=== PATIENT | male | born 1980 | race African-American/Black ===

== ENCOUNTER 2018-01-09 13:35 | Inpatient (IN) | payer OTHER ==
[2018-01-09] MEDS ORDERED: SODIUM CHLORIDE 1,000 ML IV STA (13:50)
--- NOTE | 2018-01-09 13:50 | PDOC ---
History of Present Illness - History of Present Illness Initial Comments: 01/09/18 14:53 37 YOM, with a significant past medical history of HLD (diet controlled, recently diagnosed this week), who presents to the emergency department with progressively worsening RLQ AP x 1 day since 1am which woke him up from sleep. . He describes the pain as a constant dull ache 8/10, throbbing, radiating to his right lower back with associated nausea. Has not taken any medications for the pain today. He denies any recent fevers, chills, headache or dizziness. He denies any recent vomit, diarrhea or constipation. He denies any recent chest pain or shortness of breath. He denies any recent dysuria, frequency, urgency or hematuria. No other sick contacts or travel. Denies suspicious food intake. Allergies: NKDA Past surgical history: None reported. Primary Care Physician: Dr. Scherer <Jeramy Patrick - Last Filed: 01/09/18 14:52> - General History Source: Patient Exam Limitations: No Limitations <Lima Amado - Last Filed: 01/09/18 16:32> - General Chief Complaint: Pain Stated Complaint: SEVERE ABDOMINAL PAIN Time Seen by Provider: 01/09/18 13:49 Past History <Jeramy Patrick - Last Filed: 01/09/18 14:52> - Past Medical History COPD: No Hypercholesterolemia: Yes - Suicide/Smoking/Psychosocial Hx Smoking History: Never smoked Have you smoked in the past 12 months: No Hx Alcohol Use: No Substance Use Type: None <Lmia Amado - Last Filed: 01/09/18 16:32> - Past Medical History Allergies/Adverse Reactions: Allergies Allergy/AdvReac Type Severity Reaction Status Date / Time No Known Allergies Allergy Unverified 01/09/18 13:39 Home Medications: Ambulatory Orders Naproxen [Naprosyn -] 250 mg PO BID PRN 01/09/18 Review of Systems - Review of Systems Comments:: 01/09/18 14:53 GENERAL/CONSTITUTIONAL: No fever or chills. No weakness. no sweats. CARDIOVASCULAR: No chest pain or palpitations, syncope or edema. RESPIRATORY: No SOB, cough, wheezing, or hemoptysis. +GASTROINTESTINAL +Nausea. Abdominal pain- RLQ. No vomiting. No diarrhea or constipation. No bloody stools. GENITOURINARY: No hematuria, dysuria, frequency, urgency or other changes. MUSCULOSKELETAL: No joint or muscle swelling or pain. No neck or back pain. SKIN: No rash or changes in skin color or lesions. NEUROLOGIC: No headache, vertigo, loss of consciousness, or change in strength/ sensation. No gait instability. HEMATOLOGIC/LYMPHATIC: No anemia, easy bruising/bleeding, or history of blood clots. ALLERGIC/IMMUNOLOGIC: No allergies All other systems reviewed and negative, or as documented in HPI. <Jeramy Patrick - Last Filed: 01/09/18 14:52> *Physical Exam - Vital Signs Last Vital Signs Temp Pulse Resp BP Pulse Ox 97.6 F 75 18 109/67 98 01/09/18 13:36 01/09/18 13:36 01/09/18 13:36 01/09/18 13:36 01/09/18 13:36 - Physical Exam Comments: 01/09/18 14:53 General: Well appearing, awake and alert, NAD. HEENT: NCAT, PERRL, EOMI, clear conjunctiva, anicteric, moist mucus membranes, clear oropharynx, no oral lesions.. Neck: neck supple, FROM Resp: CTAB, normal and even respirations, no respiratory distress CVS: RRR, no murmurs, 2+ peripheral pulses throughout, no peripheral edema +Abdomen: +RLQ tenderness. Positive psoas sign. Neg Rovsings. soft, ND, no peritoneal signs. No murphys sign. Male : normal external genitalia, no lesions, normal testicular lie, no scrotal or testicular edema or tenderness. +cremaster reflex bilaterally. no hernia. Back: nontender, normal inspection and ROM. No CVAT MSK: no edema, CRUZ x4, ROM intact. No clubbing or cyanosis. normal bulk and tone. Extremities: no calf tenderness Neuro: alert Skin: warm and well perfused, cap refill <2 sec, normal color <Jeramy Patrick - Last Filed: 01/09/18 14:52> - Vital Signs Last Vital Signs Temp Pulse Resp BP Pulse Ox 97.6 F 75 18 109/67 98 01/09/18 13:36 01/09/18 13:36 12/02/18 13:36 01/09/18 13:36 01/09/18 13:36 <Lima Amado - Last Filed: 01/09/18 16:32> Moderate Sedation - Procedure Monitoring Vital Signs: Procedure Monitoring Vital Signs Temperature 97.6 F 01/09/18 13:36 Pulse Rate 75 01/09/18 13:36 Respiratory Rate 18 01/09/18 13:36 Blood Pressure 109/67 01/09/18 13:36 O2 Sat by Pulse Oximetry (%) 98 01/09/18 13:36 <Jeramy Patrick - Last Filed: 01/09/18 14:52> - Procedure Monitoring Vital Signs: Procedure Monitoring Vital Signs Temperature 97.6 F 01/09/18 13:36 Pulse Rate 75 01/09/18 13:36 Respiratory Rate 18 01/09/18 13:36 Blood Pressure 109/67 01/09/18 13:36 O2 Sat by Pulse Oximetry (%) 98 01/09/18 13:36 <Lima Amado - Last Filed: 01/09/18 16:32> ED Treatment Course - LABORATORY CBC & Chemistry Diagram: 01/09/18 14:00 01/09/18 14:00 - ADDITIONAL ORDERS Additional order review: Laboratory Results 01/09/18 14:00 Sodium 139 Potassium 4.1 Chloride 102 Carbon Dioxide 28 Anion Gap 9 BUN 18 Creatinine 1.1 Creat Clearance w eGFR > 60 Random Glucose 102 Calcium 9.0 Total Bilirubin 0.4 AST 31 ALT 68 H Alkaline Phosphatase 105 Total Protein 7.5 Albumin 3.7 Lipase 125 01/09/18 14:00 RBC 5.38 MCV 84.0 MCHC 31.9 L RDW 15.5 MPV 7.9 Neutrophils % 63.7 Lymphocytes % 24.6 D Monocytes % 9.5 Eosinophils % 1.5 D Basophils % 0.7 - Medications Given in the ED: ED Medications Discontinued Medications Generic Name Dose Route Start Last Admin Trade Name Freq PRN Reason Stop Dose Admin Acetaminophen 1,000 mg 01/09/18 14:17 01/09/18 14:31 Ofirmev Injection - IVPB 01/09/18 14:18 1,000 mg ONCE ONE Administration Sodium Chloride 1,000 mls @ 1,000 mls/hr 01/09/18 13:50 12/02/18 14:01 Normal Saline - IV 01/09/18 14:49 1,000 mls/hr ASDIR STA Administration Ondansetron HCl 4 mg 01/09/18 14:17 01/09/18 14:31 Zofran Injection IVPUSH 01/09/18 14:18 4 mg ONCE ONE Administration <Jeramy Patrick - Last Filed: 01/09/18 14:52> - LABORATORY CBC & Chemistry Diagram: 01/09/18 14:00 01/09/18 14:00 <Lima Amado - Last Filed: 01/09/18 16:32> Medical Decision Making - Medical Decision Making 01/09/18 14:58 See HPI for details DDx abdominal pain: appendicitis, diverticulitis. infarction/ischemia. Renal colic,metabolic/electrolyte derangements. GERD, PUD, esophageal spasm, pancreatitis, hepatitis, constipation, colitis, gastroenteritis, cholecystitis, UTI, pyelonephritis,hernia. Abdominal wall strain. Clinically doubt biliary/ alexy. Vital signs reviewed, wnl. normotensive here Prior notes reviewed, including admissions, discharges and consultations. laboratory results and imaging reviewed, basic labs and lytes wnl, notable for normal lipase and LFTs. normal Cr UA_neg for infection, f/u urine cultures. ED course: tylenol, IVF, zofran. IV morphine PRN for analgesia. CT a/p to r/o appy vs hernia vs intra abdominal infection/inflammation CT a/p neg for appy, but right renal infarction present with wedge shaped hypodensity. unclear etiology for infarction. no urinary sx and neg prelim UA for infection. no cp or sob. Heparin bolus and gtt for anticoagulation. Vascular cs with Dr. Rivera. awaiting callback, for possible endovascular vs angioplasty and surgical intervention. admission EKG/CXR ordered Dispo: admit for right renal infarction, anticoagulation, vascular surg cs admit to hospitalist team 01/09/18 16:29 01/09/18 16:32 <Lima Amado - Last Filed: 01/09/18 16:32> *DC/Admit/Observation/Transfer - Attestations Scribe Attestion: 01/09/18 14:54 Documentation prepared by Jeramy Patrick, acting as medical officer for Lima Amado MD. <Jeramy Patrick - Last Filed: 01/09/18 14:52> - Discharge Dispostion Decision to Admit order: Yes Decision to Admit order Date/Time: 01/09/18 15:51 Decision to Admit Order Category Date Time Status Decision to Admit to Hospital Routine Admission 01/09/18 15:50 Ordered - Attestations Physician Attestion: 01/09/18 14:19 I, Lima Amado MD, attest that this document has been prepared under my direction and personally reviewed by me in its entirety. I further attest, that it accurately reflects all work, treatment, procedures and medical decision -making performed by me. <Lima Amado - Last Filed: 01/09/18 16:32> Diagnosis at time of Disposition: Ischemia and infarction of kidney - Discharge Dispostion Condition at time of disposition: Guarded - Referrals Referrals: Jacquelyn Scherer [employer] TECHNICIAN [Primary Care Provider] - - Patient Instructions - Post Discharge Activity
[2018-01-09 14:08] LABS: BASO % 0.7 % (0-2.0); EOS % 1.5 % (0-4.5); HEMATOCRIT 45.2 % (35.4-49); HEMOGLOBIN 14.4 GM/dL (11.7-16.9); LYMPH % 24.6 % (8-40); MCH 26.8 pg (25.7-33.7); MCHC 31.9 g/dl (32.0-35.9); MEAN PLT VOLUME 7.9 fl (7.5-11.1); MONO % 9.5 % (3.8-10.2); NEUT % 63.7 % (42.8-82.8); PLATELET COUNT 224 K/MM3 (134-434); RBC 5.38 M/mm3 (4.00-5.60); RDW 15.5 % (11.9-15.9); WHITE BLOOD COUNT 6.3 K/mm3 (4.0-10.0)
[2018-01-09] MEDS ORDERED: ACETAMINOPHEN 1000 MG/100 ML VIAL (NON FORMULARY) IVPB ONE (14:17)
[2018-01-09] MEDS ORDERED: ONDANSETRON 4 MG/2 ML VIAL IVPUSH ONE (14:17)
[2018-01-09] MEDS ORDERED: ACETAMINOPHEN INJECTION 100 ML IVPB ONE (14:23)
[2018-01-09] MEDS ORDERED: ONDANSETRON 4 MG/2 ML VIAL ONE (14:23)
[2018-01-09 14:27] LABS: ALBUMIN 3.7 g/dl (3.4-5.0); ALK PHOS 105 U/L (45-117); ANION GAP 9 MMOL/L (8-16); BILIRUBIN,TOTAL 0.4 mg/dL (0.2-1); BLOOD UREA NITROGEN 18 mg/dL (7-18); CHLORIDE 102 mmol/L (98-107); CO2 28 mmol/L (21-32); CREATININE 1.1 mg/dL (0.55-1.3); GLUCOSE,RANDOM 102 mg/dL (74-106); LIPASE 125 U/L (73-393); POTASSIUM 4.1 mmol/L (3.5-5.1); SGOT/AST 31 U/L (15-37); SGPT/ALT 68 U/L (13-61); SODIUM 139 mmol/L (136-145); TOT PROT 7.5 g/dl (6.4-8.2)
[2018-01-09 14:54] LABS: URINE APPEARANCE CLEAR; URINE BILIRUBIN NEGATIVE (<2.0 mg/dL); URINE COLOR YELLOW; URINE GLUCOSE (UA) NEGATIVE (NEGATIVE); URINE KETONE NEGATIVE (NEGATIVE); URINE LEUK ESTERASE NEGATIVE (NEGATIVE); URINE NITRITE NEGATIVE (NEGATIVE); URINE PROTEIN NEGATIVE (NEGATIVE); URINE UROBILINOGEN NEGATIVE mg/dL (0.2-1.0)
[2018-01-09] MEDS ORDERED: morphine CARPU-JECT 4 MG/1 ML DISP.SYRIN IVPUSH ONE ×2 (15:24→16:29)
[2018-01-09] MEDS ORDERED: morphine SULFATE 4 MG/ML VIAL ONE ×2 (15:33→16:40)
[2018-01-09] MEDS ORDERED: HEPARIN - 25,000 UNIT in SODIUM CHLORIDE 495 ML IV SCH (15:45)
[2018-01-09] MEDS ORDERED: HEPARIN INFUSION - 25,000 UNITS/500 ML INFUS.BAG IVPB ONE (15:57)
[2018-01-09] MEDS ORDERED: HEPARIN NA (PORCINE) 5,000 UNITS/ML 1ML VIAL ONE (15:57)
[2018-01-09] MEDS: HEPARIN NA (PORCINE) 5,000 UNITS/ML 1ML VIAL IVPUSH PRN (16:05)
[2018-01-09] MEDS ORDERED: MORPHINE SULFATE 2 MG/ML VIAL IVPUSH PRN (16:22)
--- NOTE | 2018-01-09 16:27 | HP ---
CHIEF COMPLAINT: abdominal pain PCP: Dr. Scherer HISTORY OF PRESENT ILLNESS: Patient is a 37 year old male with a significant past medical history of obesity and hyperlipidemia. Patient comes to the ED today after he experienced an acute episode of RLQ pain that woke him from his sleep last night. He took Pepto Bismol and Naproxyn and tried to sleep, but pain worsened. He has not had this pain before. He had an episode of vomiting with this pain and describes the pain as constant throbbing dull ache. The pain does not radiate to his back, nor up to his chest. He denies any fevers, chills, headache or dizziness. He denies any diarrhea, constipation, chest pain or shortness of breath. He denies any recent dysuria, frequency, urgency or hematuria. Has not changed his diet. He denies any history of malignancy, cocaine use or autoimmune disease. In the ED a CT/abdomen & pelvis 01/09/2018 shows multiple right renal hypodense nonenhancing lesion are seen consistent with either (1) multiple acute infarcts vs. multifocal acute pyelonephritis. ER course was notable for: (1) EKG SB 54 (2) trop negative x 1 (3) UA negative, no protein, no hematuria, no signs of infection or blood. UC pending. (4) normal bun/creat (5) pt/inr (6) heparin drip Recent Travel: denies Social History: Smoking: denies Alcohol: denies Drugs: denies Family History: Allergies No Known Allergies Allergy (Unverified 01/09/18 13:39) HOME MEDICATIONS: Home Medications Medication Instructions Recorded Naproxen [Naprosyn -] 250 mg PO BID PRN 01/09/18 PHYSICAL EXAMINATION Vital Signs - 24 hr 01/09/18 13:36 Temperature 97.6 F Pulse Rate 75 Respiratory 18 Rate Blood Pressure 109/67 O2 Sat by Pulse 98 Oximetry (%) GENERAL: Awake, alert, and fully oriented, in no acute distress. HEAD: Normal with no signs of trauma. EYES: Pupils equal, round and reactive to light, extraocular movements intact, sclera anicteric, conjunctiva clear. No lid lag. EARS, NOSE, THROAT: Ears normal, nares patent, oropharynx clear without exudates. Moist mucous membranes. NECK: Normal range of motion, supple without lymphadenopathy, JVD, or masses. LUNGS: Breath sounds equal, clear to auscultation bilaterally. No wheezes, and no crackles. No accessory muscle use. HEART: Regular rate and rhythm, normal S1 and S2 without murmur, rub or gallop. ABDOMEN:+Abdomen: +RLQ tenderness. Positive psoas sign. MUSCULOSKELETAL: Normal range of motion at all joints. No bony deformities or tenderness. No CVA tenderness. UPPER EXTREMITIES: 2+ pulses, warm, well-perfused. No cyanosis. No clubbing. No peripheral edema. LOWER EXTREMITIES: 2+ pulses, warm, well-perfused. No calf tenderness. No peripheral edema. NEUROLOGICAL: Cranial nerves II-XII intact. Normal speech. Normal gait. PSYCHIATRIC: Cooperative. Good eye contact. Appropriate mood and affect. SKIN: Warm, dry, normal turgor, no rashes or lesions noted, normal capillary refill. Laboratory Results - last 24 hr 01/09/18 01/09/18 01/09/18 14:00 14:00 14:40 WBC 6.3 RBC 5.38 Hgb 14.4 Hct 45.2 MCV 84.0 MCH 26.8 MCHC 31.9 L RDW 15.5 Plt Count 224 D MPV 7.9 Absolute Neuts (auto) 4.0 Neutrophils % 63.7 Lymphocytes % 24.6 D Monocytes % 9.5 Eosinophils % 1.5 D Basophils % 0.7 Nucleated RBC % 0 Sodium 139 Potassium 4.1 Chloride 102 Carbon Dioxide 28 Anion Gap 9 BUN 18 Creatinine 1.1 Creat Clearance w eGFR > 60 Random Glucose 102 Calcium 9.0 Total Bilirubin 0.4 AST 31 ALT 68 H Alkaline Phosphatase 105 Total Protein 7.5 Albumin 3.7 Lipase 125 Urine Color Yellow Urine Appearance Clear Urine pH 5.0 Ur Specific [place] 1.023 Urine Protein Negative Urine Glucose (UA) Negative Urine Ketones Negative Urine Blood Negative Urine Nitrite Negative Urine Bilirubin Negative Urine Urobilinogen Negative Ur Leukocyte Esterase Negative ASSESSMENT/PLAN: Patient is a 37 year old male with a significant past medical history of obesity and hyperlipidemia. Patient comes to the ED today after he experienced an acute episode of RLQ pain that woke him from his sleep last night. He took Pepto Bismol and Naproxyn and tried to sleep, but pain worsened. He has not had this pain before. He had an episode of vomiting with this pain and describes the pain as constant throbbing dull ache. The pain does not radiate to his back, nor up to his chest. Imaging: In the ED a CT/abdomen & pelvis 01/09/2018 shows multiple right renal hypodense nonenhancing lesion are seen consistent with either (1) multiple acute infarcts vs. multifocal acute pyelonephritis. Renal: Presents with RLQ pain and nausea and found to have multiple right renal hypodense nonenhancing lesion are seen consistent with either: multiple acute infarcts vs. multifocal acute pyelonephritis. No cardiovascular disease reported, EKG shows sinus valeriy, echo ordered to rule out valvular heart disease. will order - [id number] - lipid panel - echocardiogram - started on heparin drip - IVF - pain management - LE doppler - daily pt/inr Monitor renal function with daily labs. Vascular consulted/renal consulted : Acute pylenoephritis per Ct imaging denies any recent dysuria, frequency, urgency or hematuria. UA negative UC pending Ceftriaxone 2gram given Start on ivf. Heme: Consider heme consult for hypercoag. workup Cardiology Rule out cardiogenic embolic source Echocardiogram ordered Further testing as per cardiology recommendations fen normal saline @100cc/hr monitor electrolytes low salt diet prophy on heparin drip protonix full code Visit type - Emergency Visit Emergency Visit: Yes ED Registration Date: 01/09/18 Care time: The patient presented to the Emergency Department on the above date and was hospitalized for further evaluation of their emergent condition. - New Patient This patient is new to me today: Yes Date on this admission: 01/09/18 - Critical Care Critical Care patient: No
[2018-01-09 16:41] LABS: INR 1.13 (0.83-1.09); PROTHROMBIN TIME (PATIENT) 13.3 SEC (9.7-13.0)
[2018-01-09 18:14] LABS: LDH 220 U/L (87-246)
[2018-01-09] MEDS ORDERED: morphine SULFATE 4 MG/ML VIAL IVPUSH ONE (18:23)
[2018-01-09 18:31] VITALS: BMI 42.7
[2018-01-09] MEDS ORDERED: CEFTRIAXONE 2 GM in DEXTROSE 5%-WATER 100 ML IVPB ONE (18:45)
[2018-01-09] MEDS ORDERED: ONDANSETRON 4 MG/2 ML VIAL IVPUSH PRN (18:53)
[2018-01-09] MEDS: RANITIDINE HCL 150 MG TABLET (FP) PO SCH (21:17)
[2018-01-09] MEDS: DOCUSATE SODIUM 100 MG CAPSULE (FP) PO SCH (21:18)
[2018-01-09] MEDS: SODIUM CHLORIDE 1,000 ML IV SCH (21:30)
[2018-01-09] MEDS ORDERED: DEXTROSE 5%-WATER 100 ML IVPB ONE (21:43)
[2018-01-09 22:54] LABS: LDH 224 U/L (87-246)
[2018-01-10 01:49] LABS: URINE APPEARANCE CLEAR; URINE BILIRUBIN NEGATIVE (<2.0 mg/dL); URINE COLOR LTYELLOW; URINE GLUCOSE (UA) NEGATIVE (NEGATIVE); URINE KETONE NEGATIVE (NEGATIVE); URINE LEUK ESTERASE NEGATIVE (NEGATIVE); URINE NITRITE NEGATIVE (NEGATIVE); URINE PROTEIN NEGATIVE (NEGATIVE); URINE UROBILINOGEN NEGATIVE mg/dL (0.2-1.0)
[2018-01-10] MEDS: DOCUSATE SODIUM 100 MG CAPSULE (FP) PO SCH ×3 (05:48→22:06)
[2018-01-10] MEDS: morphine SULFATE 4 MG/ML VIAL IVPUSH PRN ×3 (05:48→18:54)
[2018-01-10 07:00] LABS: HEMATOCRIT 42.9 % (35.4-49); HEMOGLOBIN 13.8 GM/dL (11.7-16.9); MCHC 32.3 g/dl (32.0-35.9); MEAN CELL VOLUME 83.5 fl (80-96); MEAN PLT VOLUME 7.8 fl (7.5-11.1); PLATELET COUNT 199 K/MM3 (134-434); RBC 5.13 M/mm3 (4.00-5.60); RDW 15.3 % (11.9-15.9); WHITE BLOOD COUNT 6.4 K/mm3 (4.0-10.0)
[2018-01-10 07:25] LABS: ANION GAP 10 MMOL/L (8-16); BLOOD UREA NITROGEN 12 mg/dL (7-18); CALCIUM 8.7 mg/dL (8.5-10.1); CHLORIDE 103 mmol/L (98-107); CO2 26 mmol/L (21-32); CREATININE 0.9 mg/dL (0.55-1.3); GLUCOSE,RANDOM 85 mg/dL (74-106); MAGNESIUM 1.8 mg/dL (1.8-2.4); POTASSIUM 4.1 mmol/L (3.5-5.1); SODIUM 138 mmol/L (136-145)
[2018-01-10 07:27] LABS: CHOLESTEROL 202 mg/dL (50-200); HDL CHOLESTEROL 61 mg/dL (40-60); TRIGLYCERIDES 85 mg/dL (0-150)
[2018-01-10 07:47] LABS: INR 1.14 (0.83-1.09); PROTHROMBIN TIME (PATIENT) 13.5 SEC (9.7-13.0)
[2018-01-10 07:50] LABS: ACTIVATED PTT 32.6 SECONDS (25.2-36.5)
[2018-01-10] MEDS ORDERED: DEXTROSE 5%-WATER 100 ML IVPB ONE (09:55)
[2018-01-10] MEDS: CEFTRIAXONE 2 GM in DEXTROSE 5%-WATER 100 ML IVPB SCH (10:12)
[2018-01-10] MEDS: RANITIDINE HCL 150 MG TABLET (FP) PO SCH ×2 (10:12→22:06)
[2018-01-10] MEDS: HEPARIN NA (PORCINE) 5,000 UNITS/ML 1ML VIAL IVPUSH PRN ×3 (10:14→18:55)
--- NOTE | 2018-01-10 11:16 | EKG ---
Test Reason : Blood Pressure : / mmHG Vent. Rate : 054 BPM Atrial Rate : 054 BPM P-R Int : 188 ms QRS Dur : 084 ms QT Int : 432 ms P-R-T Axes : 051 053 023 degrees QTc Int : 409 ms SINUS BRADYCARDIA OTHERWISE NORMAL ECG WHEN COMPARED WITH ECG OF 01-MAR-2009 03:00, VENT. RATE HAS DECREASED BY 33 BPM Confirmed by NICO HUTTON MD ([id number]) on 01/10/2018 11:16:09 AM Referred By: Confirmed By:NICO HUTTON MD
--- NOTE | 2018-01-10 12:45 | CONSULT ---
Consult - text type - Consultation Consultation Note: Renal Consult for Renal infarction This is a 37 year old AA gentleman with no significant past medical history who presented with right sided abd pain and found to have renal infarction vs pylonephritis on CT scan. Pt denies any history of CKD or kidney issues in the past. No hx of vascular procedures. No hx of Afib. ON Naproxen for right shoulder pain. No N/V/D. No fever or chills. No hx of autoimmune disease. Continues to have mild abd pain. No gross hematuria. PMhx: as above Allergies: NKDA Family Hx: NC Social Hx: no Tobacco ROS: as per HPI, all other pertinent ros negative Vital Signs Temperature 98.5 F 01/10/18 06:00 Pulse Rate 65 01/10/18 06:00 Respiratory Rate 18 01/10/18 06:00 Blood Pressure 136/71 01/10/18 06:00 O2 Sat by Pulse Oximetry (%) 100 01/09/18 21:00 Intake & Output 01/07/18 01/08/18 01/09/18 01/10/18 23:59 23:59 23:59 23:59 Intake Total 530 840 Balance 530 840 Weight 142.882 kg NAD Neck supple, no JVD MMM RRR CTA soft NT/ND No LE edema CBC, BMP 01/10/18 06:00 01/10/18 06:00 Current Medications Acetaminophen (Tylenol -) 650 mg PO Q6H PRN PRN Reason: PAIN LEVEL 7-10 Atorvastatin Calcium (Lipitor -) 40 mg PO HS KATHERIN Docusate Sodium (Colace -) 100 mg PO TID KATHERIN Last Admin: 01/10/18 05:48 Dose: 100 mg Heparin Sodium (Porcine) (Heparin -) 1,000 unit IVPUSH PRN PRN PRN Reason: Heparin Last Admin: 01/09/18 16:05 Dose: 1,000 unit Heparin Sodium (Porcine) (Heparin -) 5,000 unit IVPUSH PRN PRN PRN Reason: Heparin Last Admin: 01/10/18 10:25 Dose: 5,000 unit Heparin Sodium (Porcine) 25, (000 unit/ Sodium Chloride) 500 mls @ 20 mls/hr IV TITR KATHERIN; Protocol Last Titration: 01/10/18 10:25 Dose: 1,150 unit/hr, 23 mls/hr Sodium Chloride (Normal Saline -) 1,000 mls @ 100 mls/hr IV ASDIR KATHERIN Last Admin: 01/09/18 21:30 Dose: 100 mls/hr Ceftriaxone Sodium 2 gm/ (Dextrose) 100 mls @ 200 mls/hr IVPB DAILY [facility]; Protocol Last Admin: 01/10/18 10:12 Dose: 200 mls/hr Morphine Sulfate (Morphine Sulfate) 4 mg IVPUSH Q4H PRN PRN Reason: PAIN 4-6 Last Admin: 01/10/18 10:26 Dose: 4 mg Ondansetron HCl (Zofran Injection) 4 mg IVPUSH Q6H PRN PRN Reason: NAUSEA Ranitidine HCl (Zantac -) 150 mg PO BID [facility] Last Admin: 01/10/18 10:12 Dose: 150 mg 37 year old AA gentleman with no significant past medical history who presented with right sided abd pain and found to have renal infarction vs pylonephritis on CT scan. #Renal infarction vs. pylonephritis (less likely pylonephritis given no WBC/LE on UA) #Hyperlipidemia #Pre-HTN/HTN Continue cardiac work up for irregular cardiac rhythm vs. valve pathology consider heme evaluation for prothrombotic work up Would do CTA of Abd to r/o pathology in aorta and renal arteries would continue anticoagulation pending work up, if not clear etiology would consider long term care administrator A/C and then reassessment in 3-6 months Renal function is preserved, would continue to monitor continue statin trend BP Thank you Carl Mercado DO
--- NOTE | 2018-01-10 13:32 | PN ---
Physical Exam: SUBJECTIVE: Patient seen and examined at the bedside. at bedside. OBJECTIVE: states patient had back surgery 5 years ago L4-L5 with Dr [place]. denies any recent surgery. Vital Signs Period Temp Pulse Resp BP Sys/Spear Pulse Ox Last 24 Hr 97.6 F-98.5 F 60-75 16-18 100-136/50-71 98-100 GENERAL: Awake, alert, and fully oriented, in no acute distress. HEAD: Normal with no signs of trauma. EYES: Pupils equal, round and reactive to light, extraocular movements intact, sclera anicteric, conjunctiva clear. No lid lag. EARS, NOSE, THROAT: Ears normal, nares patent, oropharynx clear without exudates. Moist mucous membranes. NECK: Normal range of motion, supple without lymphadenopathy, JVD, or masses. LUNGS: Breath sounds equal, clear to auscultation bilaterally. No wheezes, and no crackles. No accessory muscle use. HEART: Regular rate and rhythm, normal S1 and S2 without murmur, rub or gallop. ABDOMEN:+Abdomen: +RLQ tenderness MUSCULOSKELETAL: Normal range of motion at all joints. No bony deformities or tenderness. No CVA tenderness. UPPER EXTREMITIES: 2+ pulses, warm, well-perfused. No cyanosis. No clubbing. No peripheral edema. LOWER EXTREMITIES: 2+ pulses, warm, well-perfused. No calf tenderness. No peripheral edema. NEUROLOGICAL: Cranial nerves II-XII intact. Normal speech. Normal gait. PSYCHIATRIC: Cooperative. Good eye contact. Appropriate mood and affect. SKIN: Warm, dry, normal turgor, no rashes or lesions noted, normal capillary refill. Laboratory Results - last 24 hr 01/09/18 01/09/18 01/09/18 09:25 09:25 09:25 WBC RBC Hgb Hct MCV MCH MCHC RDW Plt Count MPV Absolute Neuts (auto) Neutrophils % Lymphocytes % Monocytes % Eosinophils % Basophils % Nucleated RBC % PT with INR INR PTT (Actin FS) 41.4 H Sodium Potassium Chloride Carbon Dioxide Anion Gap BUN Creatinine Creat Clearance w eGFR Random Glucose Hemoglobin A1c % Calcium Magnesium Total Bilirubin AST ALT Alkaline Phosphatase LD Total 224 Creatine Kinase 219 Creatine Kinase Index 0.4 CK-MB (CK-2) < 1.0 Troponin I Total Protein Albumin Triglycerides Cholesterol Total LDL Cholesterol HDL Cholesterol Lipase Urine Color Urine Appearance Urine pH Ur Specific [place] Urine Protein Urine Glucose (UA) Urine Ketones Urine Blood Urine Nitrite Urine Bilirubin Urine Urobilinogen Ur Leukocyte Esterase Blood Type O POSITIVE Antibody Screen 01/09/18 01/09/18 01/09/18 09:25 14:00 14:00 WBC 6.3 RBC 5.38 Hgb 14.4 Hct 45.2 MCV 84.0 MCH 26.8 MCHC 31.9 L RDW 15.5 Plt Count 224 D MPV 7.9 Absolute Neuts (auto) 4.0 Neutrophils % 63.7 Lymphocytes % 24.6 D Monocytes % 9.5 Eosinophils % 1.5 D Basophils % 0.7 Nucleated RBC % 0 PT with INR INR PTT (Actin FS) Sodium 139 Potassium 4.1 Chloride 102 Carbon Dioxide 28 Anion Gap 9 BUN 18 Creatinine 1.1 Creat Clearance w eGFR > 60 Random Glucose 102 Hemoglobin A1c % Calcium 9.0 Magnesium Total Bilirubin 0.4 AST 31 ALT 68 H Alkaline Phosphatase 105 LD Total Creatine Kinase Creatine Kinase Index CK-MB (CK-2) Troponin I < 0.02 Total Protein 7.5 Albumin 3.7 Triglycerides Cholesterol Total LDL Cholesterol HDL Cholesterol Lipase 125 Urine Color Urine Appearance Urine pH Ur Specific [place] Urine Protein Urine Glucose (UA) Urine Ketones Urine Blood Urine Nitrite Urine Bilirubin Urine Urobilinogen Ur Leukocyte Esterase Blood Type Antibody Screen 01/09/18 01/09/18 01/09/18 14:40 16:05 16:05 WBC RBC Hgb Hct MCV MCH MCHC RDW Plt Count MPV Absolute Neuts (auto) Neutrophils % Lymphocytes % Monocytes % Eosinophils % Basophils % Nucleated RBC % PT with INR INR PTT (Actin FS) 28.6 Sodium Potassium Chloride Carbon Dioxide Anion Gap BUN Creatinine Creat Clearance w eGFR Random Glucose Hemoglobin A1c % Calcium Magnesium Total Bilirubin AST ALT Alkaline Phosphatase LD Total Creatine Kinase Creatine Kinase Index CK-MB (CK-2) Troponin I Total Protein Albumin Triglycerides Cholesterol Total LDL Cholesterol HDL Cholesterol Lipase Urine Color Yellow Urine Appearance Clear Urine pH 5.0 Ur Specific [place] 1.023 Urine Protein Negative Urine Glucose (UA) Negative Urine Ketones Negative Urine Blood Negative Urine Nitrite Negative Urine Bilirubin Negative Urine Urobilinogen Negative Ur Leukocyte Esterase Negative Blood Type O POSITIVE Antibody Screen Negative 01/09/18 01/09/18 01/10/18 16:06 17:15 01:30 WBC RBC Hgb Hct MCV MCH MCHC RDW Plt Count MPV Absolute Neuts (auto) Neutrophils % Lymphocytes % Monocytes % Eosinophils % Basophils % Nucleated RBC % PT with INR 13.30 H INR 1.13 H PTT (Actin FS) Sodium Potassium Chloride Carbon Dioxide Anion Gap BUN Creatinine Creat Clearance w eGFR Random Glucose Hemoglobin A1c % Calcium Magnesium Total Bilirubin AST ALT Alkaline Phosphatase LD Total 220 Creatine Kinase Creatine Kinase Index CK-MB (CK-2) Troponin I < 0.02 Total Protein Albumin Triglycerides Cholesterol Total LDL Cholesterol HDL Cholesterol Lipase Urine Color Ltyellow Urine Appearance Clear Urine pH 7.0 D Ur Specific [place] 1.026 Urine Protein Negative Urine Glucose (UA) Negative Urine Ketones Negative Urine Blood Negative Urine Nitrite Negative Urine Bilirubin Negative Urine Urobilinogen Negative Ur Leukocyte Esterase Negative Blood Type Antibody Screen 01/10/18 01/10/18 01/10/18 06:00 06:00 06:00 WBC 6.4 RBC 5.13 Hgb 13.8 Hct 42.9 MCV 83.5 MCH 27.0 MCHC 32.3 RDW 15.3 Plt Count 199 MPV 7.8 Absolute Neuts (auto) Neutrophils % Lymphocytes % Monocytes % Eosinophils % Basophils % Nucleated RBC % PT with INR 13.50 H INR 1.14 H PTT (Actin FS) 32.6 Sodium 138 Potassium 4.1 Chloride 103 Carbon Dioxide 26 Anion Gap 10 BUN 12 Creatinine 0.9 Creat Clearance w eGFR > 60 Random Glucose 85 Hemoglobin A1c % Calcium 8.7 Magnesium 1.8 Total Bilirubin AST ALT Alkaline Phosphatase LD Total Creatine Kinase Creatine Kinase Index CK-MB (CK-2) Troponin I Total Protein Albumin Triglycerides Cholesterol Total LDL Cholesterol HDL Cholesterol Lipase Urine Color Urine Appearance Urine pH Ur Specific [place] Urine Protein Urine Glucose (UA) Urine Ketones Urine Blood Urine Nitrite Urine Bilirubin Urine Urobilinogen Ur Leukocyte Esterase Blood Type Antibody Screen 01/10/18 01/10/18 01/10/18 06:00 06:00 06:00 WBC RBC Hgb Hct MCV MCH MCHC RDW Plt Count MPV Absolute Neuts (auto) Neutrophils % Lymphocytes % Monocytes % Eosinophils % Basophils % Nucleated RBC % PT with INR INR PTT (Actin FS) Cancelled Sodium Potassium Chloride Carbon Dioxide Anion Gap BUN Creatinine Creat Clearance w eGFR Random Glucose Hemoglobin A1c % 5.8 Calcium Magnesium Total Bilirubin AST ALT Alkaline Phosphatase LD Total Creatine Kinase Creatine Kinase Index CK-MB (CK-2) Troponin I Total Protein Albumin Triglycerides 85 Cholesterol 202 H Total LDL Cholesterol 115 H HDL Cholesterol 61 H Lipase Urine Color Urine Appearance Urine pH Ur Specific [place] Urine Protein Urine Glucose (UA) Urine Ketones Urine Blood Urine Nitrite Urine Bilirubin Urine Urobilinogen Ur Leukocyte Esterase Blood Type Antibody Screen 01/10/18 07:00 WBC RBC Hgb Hct MCV MCH MCHC RDW Plt Count MPV Absolute Neuts (auto) Neutrophils % Lymphocytes % Monocytes % Eosinophils % Basophils % Nucleated RBC % PT with INR INR PTT (Actin FS) Sodium Potassium Chloride Carbon Dioxide Anion Gap BUN Creatinine Creat Clearance w eGFR Random Glucose Hemoglobin A1c % Calcium Magnesium Total Bilirubin AST ALT Alkaline Phosphatase LD Total Creatine Kinase Creatine Kinase Index CK-MB (CK-2) Troponin I Total Protein Albumin Triglycerides Cholesterol Total LDL Cholesterol HDL Cholesterol Lipase Urine Color Urine Appearance Urine pH Ur Specific [place] Urine Protein Urine Glucose (UA) Urine Ketones Urine Blood Urine Nitrite Urine Bilirubin Urine Urobilinogen Ur Leukocyte Esterase Blood Type O POSITIVE Antibody Screen Negative Active Medications Generic Name Dose Route Start Last Admin Trade Name Freq PRN Reason Stop Dose Admin Acetaminophen 650 mg 01/09/18 18:27 Tylenol - PO Q6H PRN PAIN LEVEL 7-10 Atorvastatin Calcium 40 mg 01/10/18 22:00 Lipitor - PO HS KATHERIN Docusate Sodium 100 mg 01/09/18 22:00 01/10/18 05:48 Colace - PO 100 mg TID KATHERIN Administration Heparin Sodium (Porcine) 1,000 unit 01/09/18 15:45 01/09/18 16:05 Heparin - IVPUSH 1,000 unit PRN PRN Administration Heparin Heparin Sodium (Porcine) 5,000 unit 01/09/18 15:45 01/10/18 10:25 Heparin - IVPUSH 5,000 unit PRN PRN Administration Heparin Heparin Sodium (Porcine) 25, 500 mls @ 20 mls/hr 01/09/18 15:45 01/10/18 10: 25 000 unit/ Sodium Chloride IV 1,150 unit/hr TITR KATHERIN 23 mls/hr Titration Protocol 1,000 UNIT/HR Sodium Chloride 1,000 mls @ 100 mls/hr 01/09/18 21:45 01/09/18 21:30 Normal Saline - IV 100 mls/hr ASDIR KATHERIN Administration Ceftriaxone Sodium 2 gm/ 100 mls @ 200 mls/hr 01/10/18 10:00 01/10/18 10:12 Dextrose IVPB 200 mls/hr DAILY KATHERIN Administration Protocol Morphine Sulfate 4 mg 01/09/18 18:24 01/10/18 10:26 Morphine Sulfate IVPUSH 4 mg Q4H PRN Administration PAIN 4-6 Ondansetron HCl 4 mg 01/09/18 18:53 Zofran Injection IVPUSH Q6H PRN NAUSEA Ranitidine HCl 150 mg 01/09/18 22:00 01/10/18 10:12 Zantac - PO 150 mg BID KATHERIN Administration ASSESSMENT/PLAN: Patient is a 37 year old male with a significant past medical history of obesity , spine surgery 5 years ago L4-L5 and hyperlipidemia. Patient comes to the ED after he experienced an acute episode of RLQ pain that woke him from his sleep. He took Pepto Bismol and Naproxyn and tried to sleep, but pain worsened. He has not had this pain before. He had an episode of vomiting with this pain and describes the pain as constant throbbing dull ache. The pain does not radiate to his back, nor up to his chest. Imaging: In the ED a CT/abdomen & pelvis 01/09/2018 shows multiple right renal hypodense nonenhancing lesion are seen consistent with either (1) multiple acute infarcts vs. multifocal acute pyelonephritis. Renal: Renal infarcts Presents with RLQ pain and nausea and found to have multiple right renal hypodense nonenhancing lesion are seen consistent with multiple acute infarcts vs. multifocal acute pyelonephritis. No hx of cardiovascular disease, EKG shows sinus valeriy, echo shows no cardiac source of emboli. ef 50-55% Patient is not a diabetic. lipid panel noted. started on statin. On a heparin drip since admission Pain managed with morphine Further workup ordered: vascular study, CTA chest, abdomenal CTA. Monitor renal function with daily labs. Vascular consulted/renal consulted : Possible acute pylenoephritis per Ct imaging denies any recent dysuria, frequency, urgency or hematuria. UA negative UC pending On Ceftriaxone 2 g, On IVF Heme: Heme consult for hypercoag. workup Cardiology Rule out cardiogenic embolic source Echocardiogram ordered, no source of emboli noted on echo. Further testing as per cardiology recommendations fen normal saline @100cc/hr monitor electrolytes low salt diet prophy on heparin drip protonix full code Visit type - Emergency Visit Emergency Visit: Yes ED Registration Date: 01/09/18 Care time: The patient presented to the Emergency Department on the above date and was hospitalized for further evaluation of their emergent condition. - New Patient This patient is new to me today: No - Critical Care Critical Care patient: No - Discharge Referral Referred to [facility] No
--- NOTE | 2018-01-10 14:32 | CONSULT ---
<Donna Granado - Last Filed: 01/10/18 16:04> - Consultation REQUESTING PROVIDER: CONSULT REQUEST: We have been asked to surgically evaluate this patient for right renal infarcts. PCP:Jose Angel Ruiz NP HISTORY OF PRESENT ILLNESS: The patient is a 37 yo male who awoke from sleep early Wednesday morning for RLQ/back pain. He denies any gross hematuria, dysuria or history of urinary tract infections.The patient is having a constant pain in the RLQ and radiating to the back with intermittent increase in symptoms. He did have one episode of emesis prior to coming to the hospital. These symtpoms are resolved, he is passing flatus and had a BM yesterday. He denies any history of CP/SOB/trauma or history of any arrthymias. No known clotting disorders in his family history or for himself. PMHx: Migraines, R shoulder labrum tear. PSHx: L4-L5 laminectomy approximately 5 years ago, occasional parasthesia with increase in heavy lifting Home Medications Medication Instructions Recorded Naproxen [Naprosyn -] 250 mg PO BID PRN 01/09/18 Allergies Allergy/AdvReac Type Severity Reaction Status Date / Time No Known Allergies Allergy Unverified 01/09/18 13:39 REVIEW OF SYSTEMS: CONSTITUTIONAL: Absent: fever, chills CARDIOVASCULAR: Absent: chest pain, palpitations RESPIRATORY: Absent: cough, shortness of breath GASTROINTESTINAL: Present: abdominal pain/ RLQ. Slight distention. No bloody BM. GENITOURINARY: Absent: dysuria, hematuria Present: right flank pain. HEMATOLOGIC/IMMUNOLOGIC: Absent: no history of clotting disorder in his family or for himself. NEUROLOGIC: Present: Migraine headaches Absent: seizure disorder PHYSICAL EXAM: GENERAL: Awake, alert, and fully oriented, in no acute distress. LUNGS: Clear to auscultation bilat anteriorly. No wheezes, and no crackles. HEART: Regular rate and rhythm. No murmurs ABDOMEN: Soft, RLE with tenderness. No guarding, no rebound, no masses. MUSCULOSKELETAL: Right shoulder with decreased ROM abduction to 90 degrees. No bony deformities or tenderness. Right CVA tenderness. LOWER EXTREMITIES: 2+ pulses, warm, well-perfused. No calf tenderness. No peripheral edema. 5/5 dorsi/plantar flexion. NEUROLOGICAL: Normal speech, gait not observed. PSYCH: Cooperative. Good eye contact. Appropriate mood and affect. Vital Signs Temperature 98.5 F 01/10/18 06:00 Pulse Rate 65 01/10/18 06:00 Respiratory Rate 18 01/10/18 06:00 Blood Pressure 136/71 01/10/18 06:00 O2 Sat by Pulse Oximetry (%) 100 01/09/18 21:00 Lab Results WBC 6.4 K/mm3 (4.0-10.0) 01/10/18 06:00 RBC 5.13 M/mm3 (4.00-5.60) 01/10/18 06:00 Hgb 13.8 GM/dL (11.7-16.9) 01/10/18 06:00 Hct 42.9 % (35.4-49) 01/10/18 06:00 MCV 83.5 fl (80-96) 01/10/18 06:00 MCHC 32.3 g/dl (32.0-35.9) 01/10/18 06:00 RDW 15.3 % (11.9-15.9) 01/10/18 06:00 Plt Count 199 K/MM3 (134-434) 01/10/18 06:00 Sodium 138 mmol/L (136-145) 01/10/18 06:00 Potassium 4.1 mmol/L (3.5-5.1) 01/10/18 06:00 Chloride 103 mmol/L (98-107) 01/10/18 06:00 Carbon Dioxide 26 mmol/L (21-32) 01/10/18 06:00 Anion Gap 10 MMOL/L (8-16) 01/10/18 06:00 BUN 12 mg/dL (7-18) 01/10/18 06:00 Creatinine 0.9 mg/dL (0.55-1.3) 01/10/18 06:00 Random Glucose 85 mg/dL (74-106) 01/10/18 06:00 Calcium 8.7 mg/dL (8.5-10.1) 01/10/18 06:00 Blood Type O POSITIVE 01/10/18 07:00 Antibody Screen Negative 01/10/18 07:00 INR 1.14 (0.83-1.09) H 01/10/18 06:00 CT scan with IV contrast: multifocal right renal nonenhancing lesions c/w acute infarct vs multifocal acute pyelonephritis. No soft tissue edema. No hydronephrosis. Microbiology 01/09/18 14:40 Urine - Urine Clean Catch Urine Culture - Final Contaminated: Please Repeat Laboratory Tests 01/10/18 01:30 Urine Color Ltyellow Urine Appearance Clear Urine pH 7.0 D Ur Specific [place] 1.026 Urine Protein Negative Urine Glucose (UA) Negative Urine Ketones Negative Urine Blood Negative Urine Nitrite Negative Urine Bilirubin Negative Urine Urobilinogen Negative Ur Leukocyte Esterase Negative Laboratory Tests 01/09/18 01/09/18 09:25 17:15 Troponin I < 0.02 < 0.02 Problem List - Problems (1) Ischemia and infarction of kidney Assessment/Plan: CT finding c/w acute right renal infarct, pt now on anticoagulation therapy-IV heparin. Cardiology workup with ECHO(ordered) The patient was also seen by nephrology service with the recommendations to obtain a CTA of abd to rule out aorta/renal artery pathology. Case D/w DR. Rivera and would also obtain a CTA of the chest to r/o thoracic aorta disease. Hematology to evaluate the patient Monitor uop and renal function, UA negative on IV rocephin Code(s): N28.0 - ISCHEMIA AND INFARCTION OF KIDNEY <Nathan Rivera - Last Filed: 01/10/18 20:58> - Consultation REQUESTING PROVIDER: CONSULT REQUEST: We have been asked to surgically evaluate this patient for ( specify). PCP:Jose Angel Ruiz NP HISTORY OF PRESENT ILLNESS: PMHx: PSHx: Home Medications Medication Instructions Recorded Naproxen [Naprosyn -] 250 mg PO BID PRN 01/09/18 Allergies Allergy/AdvReac Type Severity Reaction Status Date / Time No Known Allergies Allergy Unverified 01/09/18 13:39 REVIEW OF SYSTEMS: CONSTITUTIONAL: Absent: fever, chills, diaphoresis, generalized weakness, malaise, loss of appetite, weight change CARDIOVASCULAR: Absent: chest pain, syncope, palpitations, irregular heart rate, lightheadedness , peripheral edema RESPIRATORY: Absent: cough, shortness of breath, dyspnea with exertion, wheezing, stridor, hemoptysis GASTROINTESTINAL: Absent: abdominal pain, abdominal distension, nausea, vomiting, diarrhea, constipation, melena, hematochezia GENITOURINARY: Absent: dysuria, frequency, urgency, hesitancy, hematuria, flank pain, genital pain MUSCULOSKELETAL: Absent: myalgia, arthralgia, joint swelling, back pain, neck pain SKIN: Absent: rash, itching, pallor HEMATOLOGIC/IMMUNOLOGIC: Absent: easy bleeding, easy bruising, lymphadenopathy NEUROLOGIC: Absent: headache, focal weakness, paresthesias, dizziness, unsteady gait, seizure, mental status changes, bladder or bowel incontinence PSYCHIATRIC: Absent: anxiety, depression, suicidal or homicidal ideation, hallucinations. PHYSICAL EXAM: GENERAL: Awake, alert, and fully oriented, in no acute distress. HEAD: Normal with no signs of trauma. EYES: PERRL, sclera anicteric, conjunctiva clear. NECK: Normal ROM, supple without lymphadenopathy, JVD, or masses. LUNGS: Clear to auscultation bilat anteriorly. No wheezes, and no crackles. No accessory muscle use. HEART: Regular rate and rhythm. No murmurs ABDOMEN: Soft, nontender, not distended, normoactive bowel sounds, no guarding, no rebound, no masses. No organomegaly. MUSCULOSKELETAL: Normal ROM at all joints. No bony deformities or tenderness. No CVA tenderness. UPPER EXTREMITIES: 2+ pulses, warm, well-perfused. No cyanosis. Cap refill <2 seconds. No peripheral edema. LOWER EXTREMITIES: 2+ pulses, warm, well-perfused. No calf tenderness. No peripheral edema. NEUROLOGICAL: Normal speech, gait not observed. PSYCH: Cooperative. Good eye contact. Appropriate mood and affect. SKIN: Warm, dry, normal turgor, no rashes or lesions noted. Vital Signs Temperature 98.8 F 01/10/18 17:04 Pulse Rate 79 01/10/18 17:04 Respiratory Rate 20 01/10/18 17:04 Blood Pressure 106/60 01/10/18 17:04 O2 Sat by Pulse Oximetry (%) 100 01/10/18 09:00 Lab Results WBC 6.4 K/mm3 (4.0-10.0) 01/10/18 06:00 RBC 5.13 M/mm3 (4.00-5.60) 01/10/18 06:00 Hgb 13.8 GM/dL (11.7-16.9) 01/10/18 06:00 Hct 42.9 % (35.4-49) 01/10/18 06:00 MCV 83.5 fl (80-96) 01/10/18 06:00 MCHC 32.3 g/dl (32.0-35.9) 01/10/18 06:00 RDW 15.3 % (11.9-15.9) 01/10/18 06:00 Plt Count 199 K/MM3 (134-434) 01/10/18 06:00 Sodium 138 mmol/L (136-145) 01/10/18 06:00 Potassium 4.1 mmol/L (3.5-5.1) 01/10/18 06:00 Chloride 103 mmol/L (98-107) 01/10/18 06:00 Carbon Dioxide 26 mmol/L (21-32) 01/10/18 06:00 Anion Gap 10 MMOL/L (8-16) 01/10/18 06:00 BUN 12 mg/dL (7-18) 01/10/18 06:00 Creatinine 0.9 mg/dL (0.55-1.3) 01/10/18 06:00 Random Glucose 85 mg/dL (74-106) 01/10/18 06:00 Calcium 8.7 mg/dL (8.5-10.1) 01/10/18 06:00 Blood Type O POSITIVE 01/10/18 07:00 Antibody Screen Negative 01/10/18 07:00 INR 1.14 (0.83-1.09) H 01/10/18 06:00 History reviewed, patient examined. CT scans reviewed. There is no evidence for embolic source in thoracic or suprarenal aorta. The inferior infarct in the [facility] kidney appears to have resolved on the repeat scan today. No change in renal function noted. There is no need for further vascular testing. Hematology and cardiology evaluations pending.
--- NOTE | 2018-01-10 15:37 | ECHO ---
Name: FELICIA ARMSTRONG Exam:Adult Echocardiogram Study Date: 01/10/2018 11:39 AM Age: 37 yrs Reason For Study: renal infarct Height: 74 in Weight: 312 lb BSA: 2.6 m2 MMode/2D Measurements & Calculations IVSd: 1.1 cm Ao root diam: 3.3 cm LVIDd: 4.9 cm LA dimension: 3.5 cm LVIDs: 2.9 cm LVPWd: 1.2 cm LVPWs: 1.7 cm EDV(Teich): 115.5 ml ESV(Teich): 32.9 ml Doppler Measurements & Calculations MV E max rahul: 59.2 cm/sec Ao V2 max: 101.1 cm/sec MV A max rahul: 50.8 cm/sec Ao max P.1 mmHg MV E/A: 1.2 MV dec time: 0.14 sec LV V1 max P.5 mmHg PA V2 max: 109.9 cm/sec LV V1 max: 93.8 cm/sec PA max P.9 mmHg Med Peak E' Rahul: 6.7 cm/sec Med E/e': 8.9 Lat Peak E' Rahul: 9.1 cm/sec Lat E/e': 6.5 Procedure The study was technically good with many images being of high quality. Left Ventricle The left ventricular size, thickness and function are normal. Ejection Fraction = 50-55%. Left Ventri cular Filling pattern is normal for age. Right Ventricle The right ventricle is normal in size and function. Atria Normal left and right atrial size and function. Mitral Valve The mitral valve is normal in structure and function. There is no evidence of mitral valve prolapse. There is trace mitral regurgitation. Tricuspid Valve The tricuspid valve is not well visualized. There is trace tricuspid regurgitation. There was insuffi cient TR detected to calculate RV systolic pressure. Aortic Valve The aortic valve opens well. The aortic valve is normal in structure and function. The aortic valve i s trileaflet. No aortic regurgitation is present. Pulmonic Valve The pulmonic valve is not well visualized. There is no pulmonic valvular regurgitation. Great Vessels The aortic root is normal size. Pericardium/Pleura There is no pericardial effusion. Interpretation Summary There is no comparison study available. No cardiac source of emboli noted. The left ventricular size, thickness and function are normal The right ventricle is normal in size and function. There is trace mitral regurgitation. There is trace tricuspid regurgitation. Ejection Fraction = 50-55%. John Carl MD 01/10/2018 03:36 PM
--- NOTE | 2018-01-10 16:22 | CONSULT ---
Consultation: REQUESTING PROVIDER: [facility] CONSULT REQUEST FOR HEMATOLOGY/ONCOLOGY: We have been asked to medically evaluate this patient for Renal Infarcts HISTORY OF PRESENT ILLNESS: Patient is a 37 year old male with a PMHx of HLD and obesity who presented to the hospital complaining of dull and aching RLQ abdominal pain that started acutely yesterday. Patient reported the pain as constant associated with nausea and vomiting, which progressively worsened within hours, and prompted this hospital visit. Patient reports taking medications such as pepto bismol and Naproxyn with no relief of symptoms. In the ED, patient has CT/Abdomen & Pelvis that showed multiple right renal hypodense nonenhancing lesions, consistent with multiple acute infarcts and started on Heparin drip. Patient denies any history or family history of malignancy, autoimmune disease, or blood disorders Patient denies any nausea, vomiting, chest pain, palpitations, shortness of breath, fever, chills, headaches, dysuria, hematuria, hematochezia, hematemesis , constipation, diarrhea, jaundice, recent abx use, recent travel, chornic NSAID use. 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 Smoking: denies Alcohol: denies Drugs: denies Family Hx: Mother- Colon cancer (Age 60's) Uncle- Prostate cancer Allergies: NKDA REVIEW OF SYSTEMS: CONSTITUTIONAL: Absent: fever, chills, diaphoresis, generalized weakness, malaise, loss of appetite, weight change HEENT: Absent: rhinorrhea, nasal congestion, throat pain, throat swelling, difficulty swallowing, mouth swelling, ear pain, eye pain, visual changes CARDIOVASCULAR: Absent: chest pain, syncope, palpitations, irregular heart rate, lightheadedness , peripheral edema RESPIRATORY: Absent: cough, shortness of breath, dyspnea with exertion, orthopnea, wheezing, stridor, hemoptysis GASTROINTESTINAL: abdominal pain Absent: abdominal distension, nausea, vomiting, diarrhea, constipation, melena, hematochezia GENITOURINARY: Absent: dysuria, frequency, urgency, hesitancy, hematuria, flank pain, genital pain MUSCULOSKELETAL: Absent: myalgia, arthralgia, joint swelling, back pain, neck pain SKIN: Absent: rash, itching, pallor HEMATOLOGIC/IMMUNOLOGIC: Absent: easy bleeding, easy bruising, lymphadenopathy, frequent infections ENDOCRINE: Absent: unexplained weight gain, unexplained weight loss, heat intolerance, cold intolerance NEUROLOGIC: Absent: headache, focal weakness or paresthesias, dizziness, unsteady gait, seizure, mental status changes, bladder or bowel incontinence PSYCHIATRIC: Absent: anxiety, depression, suicidal or homicidal ideation, hallucinations. PHYSICAL EXAMINATION Vital Signs - 24 hr 01/10/18 01/10/18 01/10/18 06:00 09:00 15:16 Temperature 98.5 F 98.4 F 98.4 F Pulse Rate 65 75 80 Pulse Rate [ Right Radial] Respiratory 18 18 18 Rate Blood Pressure 136/71 121/61 130/78 Blood Pressure [Left Arm] O2 Sat by Pulse 100 Oximetry (%) GENERAL: Awake, alert, and fully oriented, in no acute distress. HEAD: Normal with no signs of trauma. EYES: Pupils equal, round and reactive to light, extraocular movements intact, sclera anicteric, conjunctiva clear. ENT: Oropharynx clear without exudates. Moist mucous membranes. NECK: Normal range of motion, supple without lymphadenopathy, JVD, or masses. LUNGS: Breath sounds equal, clear to auscultation bilaterally. No wheezes, and no crackles. No accessory muscle use. HEART: Regular rate and rhythm, normal S1 and S2 ABDOMEN: Soft, (+) tenderness upon palpation of RLQ, not distended, normoactive bowel sounds, no guarding, no rebound, no masses. No hepatomegaly or splenomegaly. MUSCULOSKELETAL:No CVA tenderness. EXTREMITIES: 2+ pulses, warm, well-perfused. No calf tenderness. No peripheral edema. NEUROLOGICAL: Cranial nerves II-XII intact. Normal speech. PSYCHIATRIC: Cooperative. Good eye contact. Appropriate mood and affect. SKIN: Warm, dry, normal turgor, no rashes or lesions noted. Laboratory Results 01/10/18 06:00 01/10/18 06:00 01/09/18 01/09/18 01/10/18 14:00 17:15 06:00 INR 1.14 H PTT (Actin FS) 32.6 Total Bilirubin 0.4 LD Total 220 Cholesterol Total LDL Cholesterol HDL Cholesterol 01/10/18 06:00 INR PTT (Actin FS) Total Bilirubin LD Total Cholesterol 202 H Total LDL Cholesterol 115 H HDL Cholesterol 61 H Active Medications Generic Name Dose Route Start Last Admin Trade Name Freq PRN Reason Stop Dose Admin Acetaminophen 650 mg 01/09/18 18:27 Tylenol - PO Q6H PRN PAIN LEVEL 7-10 Atorvastatin Calcium 40 mg 01/10/18 22:00 Lipitor - PO HS KATHERIN Docusate Sodium 100 mg 01/09/18 22:00 01/10/18 13:40 Colace - PO 100 mg TID KATHERIN Administration Heparin Sodium (Porcine) 1,000 unit 01/09/18 15:45 01/09/18 16:05 Heparin - IVPUSH 1,000 unit PRN PRN Administration Heparin Heparin Sodium (Porcine) 5,000 unit 01/09/18 15:45 01/10/18 10:25 Heparin - IVPUSH 5,000 unit PRN PRN Administration Heparin Heparin Sodium (Porcine) 25, 500 mls @ 20 mls/hr 01/09/18 15:45 01/10/18 10: 25 000 unit/ Sodium Chloride IV 1,150 unit/hr TITR KATHERIN 23 mls/hr Titration Protocol 1,000 UNIT/HR Sodium Chloride 1,000 mls @ 100 mls/hr 01/09/18 21:45 01/09/18 21:30 Normal Saline - IV 100 mls/hr ASDIR KATHERIN Administration Ceftriaxone Sodium 2 gm/ 100 mls @ 200 mls/hr 01/10/18 10:00 01/10/18 10:12 Dextrose IVPB 200 mls/hr DAILY KATHERIN Administration Protocol Morphine Sulfate 4 mg 01/09/18 18:24 01/10/18 10:26 Morphine Sulfate IVPUSH 4 mg Q4H PRN Administration PAIN 4-6 Ondansetron HCl 4 mg 01/09/18 18:53 Zofran Injection IVPUSH Q6H PRN NAUSEA Ranitidine HCl 150 mg 01/09/18 22:00 01/10/18 10:12 Zantac - PO 150 mg BID KATHERIN Administration ASSESSMENT/PLAN: Patient is a 37 year old male who presented to the hospital for RLQ abdominal pain and CT A/P revealed multiple right renal hypodense nonenhancing lesion consistent with multiple acute infarcts. We were consulted for further evaluation and recommendation Problem List: RLQ abdominal Pain Multiple Acute Renal Infarcts HLD Obesity Plan: -Differential Diagnosis for CT findings that mimic acute renal infarction include renal colic, acute pyelonephritis, pancreatitis, cholecystitis, atrial fibrillation or mesenterc ischemia. However, patient's U/A negative with no flank pain, fevers, hematuria. CT revealed no acute pathology of the gallbladder and Lipase levels wnl. A1C ordered and was wnl. Unsure if patient has Atrial fibrillation but is currently being worked up with pediatric social worker outpatient. -CTA of abdomen and chest to rule out aorta/renal artery pathology and thoracic aortic disease. -Patient may be in prothrombotic state with no famly history of strokes or VTE. Will need hypercoag work up. -Factor V, antiphospholipid panel, Prothrombin gene ordered -Currently on Heparin and may bridge to Warfarin Dispo: We will continue to follow the patient. Thank you for this consultative opportunity. Visit type - Emergency Visit Emergency Visit: Yes ED Registration Date: 01/09/18 Care time: The patient presented to the Emergency Department on the above date and was hospitalized for further evaluation of their emergent condition. - New Patient This patient is new to me today: Yes Date on this admission: 01/10/18 - Critical Care Critical Care patient: No
[2018-01-10] MEDS: HEPARIN INFUSION - 25,000 UNITS/500 ML INFUS.BAG IVPB SCH (17:21)
--- NOTE | 2018-01-10 17:56 | PN ---
Teaching Attending Note ATTENDING PHYSICIAN STATEMENT I saw and evaluated the patient. I reviewed the resident's note and discussed the case with the resident. I agree with the resident's findings and plan as documented. SUBJECTIVE: OBJECTIVE: ASSESSMENT AND PLAN:
[2018-01-10] MEDS: ATORVASTATIN CA 80 MG TABLET (FP) PO SCH (22:05)
[2018-01-10] MEDS: SODIUM CHLORIDE 1,000 ML IV SCH (22:07)
[2018-01-11] MEDS: morphine SULFATE 4 MG/ML VIAL IVPUSH PRN ×3 (02:13→20:24)
[2018-01-11] MEDS: DOCUSATE SODIUM 100 MG CAPSULE (FP) PO SCH ×3 (06:25→21:47)
[2018-01-11 07:21] LABS: BASO % 0.3 % (0-2.0); EOS % 0.5 % (0-4.5); HEMOGLOBIN 14.4 GM/dL (11.7-16.9); LYMPH % 18.6 % (8-40); MCH 27.4 pg (25.7-33.7); MCHC 32.7 g/dl (32.0-35.9); MEAN CELL VOLUME 83.8 fl (80-96); MEAN PLT VOLUME 7.9 fl (7.5-11.1); MONO % 11.7 % (3.8-10.2); NEUT % 68.9 % (42.8-82.8); PLATELET COUNT 201 K/MM3 (134-434); RBC 5.25 M/mm3 (4.00-5.60); RDW 15.1 % (11.9-15.9); WHITE BLOOD COUNT 9.2 K/mm3 (4.0-10.0)
[2018-01-11 07:41] LABS: INR 1.31 (0.83-1.09); PROTHROMBIN TIME (PATIENT) 15.5 SEC (9.7-13.0)
[2018-01-11 07:47] LABS: ALBUMIN 3.4 g/dl (3.4-5.0); ALK PHOS 102 U/L (45-117); ANION GAP 11 MMOL/L (8-16); BLOOD UREA NITROGEN 10 mg/dL (7-18); CALCIUM 8.7 mg/dL (8.5-10.1); CHLORIDE 101 mmol/L (98-107); CO2 25 mmol/L (21-32); CREATININE 1.1 mg/dL (0.55-1.3); GLUCOSE,RANDOM 84 mg/dL (74-106); MAGNESIUM 1.8 mg/dL (1.8-2.4); POTASSIUM 4.1 mmol/L (3.5-5.1); SGOT/AST 48 U/L (15-37); SGPT/ALT 75 U/L (13-61); SODIUM 137 mmol/L (136-145); TOT PROT 7.3 g/dl (6.4-8.2)
--- NOTE | 2018-01-11 08:39 | PN ---
Physical Exam: SUBJECTIVE: Patient seen and examined post procedure; he is doing well. Flank pain is still present but slightly improving. Went for TRICIA today with Dr. Myers and was found to have no cardiogenic source for the embolic phenomenon but does have a small patent PFO. Nephrology states in their most recent note that they feel this is more likely due to renal infarction vs. pyelo. I will err on the side of continuing abx in this patient and discuss the case with Dr. West if he would feel it appropriate to stop tx. Hematology is following; considering changing from IV heparin to warfarin. Will discuss with thier team. OBJECTIVE: Vital Signs Period Temp Pulse Resp BP Sys/Spear Pulse Ox Last 24 Hr 98.1 F-98.8 F 75-80 16-20 106-130/51-78 100-100 GENERAL: The patient is awake, alert, and fully oriented, in no acute distress. HEAD: Normal with no signs of trauma. EYES: PERRL, extraocular movements intact, sclera anicteric, conjunctiva clear. No ptosis. ENT: Ears normal, nares patent, oropharynx clear without exudates, moist mucous membranes. NECK: Trachea midline, full range of motion, supple. LUNGS: Breath sounds equal, clear to auscultation bilaterally, no wheezes, no crackles, no accessory muscle use. HEART: Regular rate and rhythm, S1, S2 without murmur, rub or gallop. ABDOMEN: Soft, nontender, nondistended, normoactive bowel sounds Back: R-flank pain to fist percussion; no muscle spasm. EXTREMITIES: 2+ pulses, warm, well-perfused, no edema. NEUROLOGICAL: Cranial nerves II through XII grossly intact. Normal speech, gait not observed. PSYCH: Normal mood, normal affect. SKIN: Warm, dry, normal turgor, no rashes or lesions noted Laboratory Results - last 24 hr 01/10/18 01/10/18 01/10/18 06:00 07:00 17:00 WBC RBC Hgb Hct MCV MCH MCHC RDW Plt Count MPV Absolute Neuts (auto) Neutrophils % Lymphocytes % Monocytes % Eosinophils % Basophils % Nucleated RBC % PT with INR INR PTT (Actin FS) 42.0 H Sodium Potassium Chloride Carbon Dioxide Anion Gap BUN Creatinine Creat Clearance w eGFR Random Glucose Hemoglobin A1c % 5.8 Calcium Magnesium Total Bilirubin AST ALT Alkaline Phosphatase Total Protein Albumin Blood Type O POSITIVE Antibody Screen Negative 01/11/18 01/11/18 01/11/18 01:20 06:15 06:15 WBC 9.2 RBC 5.25 Hgb 14.4 Hct 44.0 MCV 83.8 MCH 27.4 MCHC 32.7 RDW 15.1 Plt Count 201 MPV 7.9 Absolute Neuts (auto) 6.3 Neutrophils % 68.9 Lymphocytes % 18.6 D Monocytes % 11.7 H Eosinophils % 0.5 Basophils % 0.3 Nucleated RBC % 0 PT with INR INR PTT (Actin FS) 54.8 H Sodium 137 Potassium 4.1 Chloride 101 Carbon Dioxide 25 Anion Gap 11 BUN 10 Creatinine 1.1 Creat Clearance w eGFR > 60 Random Glucose 84 Hemoglobin A1c % Calcium 8.7 Magnesium 1.8 Total Bilirubin 1.0 AST 48 H ALT 75 H Alkaline Phosphatase 102 Total Protein 7.3 Albumin 3.4 Blood Type Antibody Screen 01/11/18 01/11/18 06:15 08:01 WBC RBC Hgb Hct MCV MCH MCHC RDW Plt Count MPV Absolute Neuts (auto) Neutrophils % Lymphocytes % Monocytes % Eosinophils % Basophils % Nucleated RBC % PT with INR 15.50 H INR 1.31 H PTT (Actin FS) Cancelled Sodium Potassium Chloride Carbon Dioxide Anion Gap BUN Creatinine Creat Clearance w eGFR Random Glucose Hemoglobin A1c % Calcium Magnesium Total Bilirubin AST ALT Alkaline Phosphatase Total Protein Albumin Blood Type Antibody Screen Active Medications Generic Name Dose Route Start Last Admin Trade Name Freq PRN Reason Stop Dose Admin Acetaminophen 650 mg 01/09/18 18:27 Tylenol - PO Q6H PRN PAIN LEVEL 7-10 Atorvastatin Calcium 40 mg 01/10/18 22:00 01/10/18 22:05 Lipitor - PO 40 mg HS KATHERIN Administration Docusate Sodium 100 mg 01/09/18 22:00 01/11/18 06:25 Colace - PO 100 mg TID KATHERIN Administration Heparin Sodium (Porcine) 1,000 unit 01/09/18 15:45 01/10/18 18:55 Heparin - IVPUSH 1,000 unit PRN PRN Administration Heparin Heparin Sodium (Porcine) 5,000 unit 01/09/18 15:45 01/10/18 10:25 Heparin - IVPUSH 5,000 unit PRN PRN Administration Heparin Sodium Chloride 1,000 mls @ 100 mls/hr 01/09/18 21:45 01/10/18 22:07 Normal Saline - IV 100 mls/hr ASDIR KATHERIN Administration Ceftriaxone Sodium 2 gm/ 100 mls @ 200 mls/hr 01/10/18 10:00 01/10/18 10:12 Dextrose IVPB 200 mls/hr DAILY KATHERIN Administration Protocol Heparin Sodium/Dextrose 25,000 units in 500 mls @ 20 mls/hr 01/10/18 17:10 18:55 Heparin Infusion - IVPB 1,250 unit/hr TITR KATHERIN 25 mls/hr Titration Protocol 1,000 UNIT/HR Morphine Sulfate 4 mg 01/09/18 18:24 01/11/18 02:13 Morphine Sulfate IVPUSH 4 mg Q4H PRN Administration PAIN 4-6 Ondansetron HCl 4 mg 01/09/18 18:53 Zofran Injection IVPUSH Q6H PRN NAUSEA Ranitidine HCl 150 mg 01/09/18 22:00 01/10/18 22:06 Zantac - PO 150 mg BID KATHERIN Administration ASSESSMENT/PLAN: 1) Renal Infarction vs. Pyelonephritis -Spoke with cardiology; given TRICIA results no cardiogenic source for emboli seen -Hypercoagulable workup with heme pending. Will likely bridge to warfarin today per heme; discussed with the resident -Renal states this is likely infarction vs. pyelo; will d/w Dr. West to see if we can stop abx altogether. -Per sgy, there is no need for further vascular testing. US LE negative for DVT. The CTA results have been reviewed; patent renal arteries with R-renal infarct vs. infect. -Appreciate specialist input; will continue to follow -Trend CBC, monitor for fevers. Will check ESR/CRP as well. Cx negative so far. 2) PFO -Small patent PFO seen on TRICIA; followup the full report. OP followup with CV. 3) Hyperlipidemia -On statin 4) Obesity -[employer] prior to DC Full Code Visit type - Emergency Visit Emergency Visit: No - New Patient This patient is new to me today: No - Critical Care Critical Care patient: No
[2018-01-11 08:56] LABS: ACTIVATED PTT 46.2 SECONDS (25.2-36.5)
[2018-01-11] MEDS: HEPARIN NA (PORCINE) 5,000 UNITS/ML 1ML VIAL IVPUSH PRN ×2 (09:19→19:30)
[2018-01-11] MEDS ORDERED: DEXTROSE 5%-WATER 100 ML IVPB ONE (09:53)
[2018-01-11] MEDS: CEFTRIAXONE 2 GM in DEXTROSE 5%-WATER 100 ML IVPB SCH (10:00)
[2018-01-11] MEDS: RANITIDINE HCL 150 MG TABLET (FP) PO SCH ×2 (10:00→21:46)
[2018-01-11] MEDS ORDERED: LIDOCAINE VISCOUS 2% ORAL/TOP 20 ML UNIT-DOSE CUP ONE (10:10)
--- NOTE | 2018-01-11 10:16 | CON.CARD ---
Consult Consult Specialty:: Cardiology Referred by:: Hospitalist Reason for Consultation:: Renal infarcts - History of Present Illness Chief Complaint: RLQ pain History of Present Illness: 37 year old man pmh obesity and HLD admitted with RLQ pain found to have possible R renal infarcts of unclear source. Pt was seen and examined today in nad. states he is feeling better. States that he was referred to a convolute tube winder as outpatient by his PMD which he states was just to have a check up. states he had an echo in his PMD's office that showed a mild valvular abnl but that he was told it was nothing to be concerned about. He did not yet see the convolute tube winder. No history of arrhythmias. pt denies palpitations, chest pain, sob, dizziness, lightheadedness, syncope, near syncope. CT/abdomen & pelvis 01/09/2018 shows multiple right renal hypodense nonenhancing lesion are seen consistent with either (1) multiple acute infarcts vs. multifocal acute pyelonephritis. - History Source History Provided By: Patient, Medical Record Limitations to Obtaining History: No Limitations - Past Medical History Cardio/Vascular: Yes: Hyperlipdemia - Alcohol/Substance Use Hx Alcohol Use: No - Smoking History Smoking history: Never smoked Have you smoked in the past 12 months: No - Social History Usual Living Arrangement: With Spouse ADL: Independent History of Recent Travel: No Home Medications - Allergies Allergies/Adverse Reactions: Allergies Allergy/AdvReac Type Severity Reaction Status Date / Time No Known Allergies Allergy Unverified 01/09/18 13:39 - Home Medications Home Medications: Ambulatory Orders Naproxen [Naprosyn -] 250 mg PO BID PRN 01/09/18 Family Disease History - Family Disease History Family History: Denies Review of Systems - Review of Systems Constitutional: denies: No Symptoms, Chills, Diaphoresis, Fever, Lethargy, Loss of Appetite, Malaise, Night Sweats, Unintentional Wgt. Loss, Weakness, Other Eyes: denies: No Symptoms, Blind Spots, Blurred Vision, Double Vision, Eye Pain , Floaters, Photophobia, Recent Change in Vision, Other HENT: denies: No Symptoms, Difficult Swallowing, Ear Discharge, Ear Pain, Epistaxis, Gingival Bleeding, Hearing Loss, Mouth Swelling, Nasal Congestion, Ocular Prosthesis, Throat Pain, Toothache, Ringing in Ears, Other Neck: denies: No Symptoms, Decreased ROM, Lumps, Pain on Movement, Stiffness, Swollen Glands, Tenderness, Other Cardiovascular: denies: No Symptoms, Chest Pain, Edema, Palpitations, Shortness of Breath, Other Respiratory: denies: No Symptoms, Cough, Exercise Intolerance, Hemoptysis, Orthopnea, PND, Snoring, SOB, SOB on Exertion, Wheezing, Other Gastrointestinal: reports: Abdominal Pain. denies: No Symptoms, Bloating, Constipation, Diarrhea, Dysphagia, Indigestion, Melena, Nausea, Rectal Bleeding , Vomiting, Vomiting Blood, Other Genitourinary: denies: No Symptoms, Burning, Discharge, Dysuria, Flank Pain, Frequency, Hematuria, Incontinence, Lesions, Menses, Pain, Testicular Mass, Testicular Pain, Testicular Swelling, Urgency, Vaginal Bleeding, Other Breasts: denies: No Symptoms Reported, See HPI, Breast Implants, Discharge from Nipple, Lumps, Pain, Skin Changes, Other Musculoskeletal: denies: No Symptoms, Back Pain, Crepitus, Decreased ROM, Extremity Pain, Joint Pain, Joint Swelling, Muscle Pain, Muscle Cramps, Muscle Weakness, Other Integumentary: denies: No Symptoms, Blister, Bruising, Change in Color, Eczema, Erythema, Incision, Lesions, Lump, Pallor, Pruritis, Rash, Wound, Other Neurological: denies: No Symptoms, Change in LOC, Change in Speech, Confusion, Dizziness, Headache, Incoordination, Numbness, Parasthesia, Pre-Existing Deficit , Seizure, Syncope, Tremors, Unsteady Gait, Weakness, Other Endocrine: denies: No Symptoms, Excessive Sweating, Flushing, Increased Hunger, Increased Thirst, Intolerance to Cold, Intolerance to Heat, Unexplained Weight Gain, Unexplained Weight Loss, Other Hematology/Lymphatic: denies: No Symptoms, Easily Bruised, Excessive Bleeding, Swollen Glands, Other Psychiatric: denies: No Symptoms, Altered Sleep Pattern, Anxiety, Depression, Hallucinations, Panic, Paranoia, Suicidal, Other - Risk Factors Known Risk Factors: Yes: Hypercholesterolemia Vital Signs: Vital Signs Temperature 98.1 F 01/11/18 06:00 Pulse Rate 78 01/11/18 06:00 Respiratory Rate 18 01/11/18 06:00 Blood Pressure 110/51 L 01/11/18 06:00 O2 Sat by Pulse Oximetry (%) 100 01/10/18 21:00 Constitutional: Yes: No Distress, Calm, Obese Eyes: Yes: WNL, Conjunctiva Clear, EOM Intact HENT: Yes: WNL, Atraumatic, Normocephalic Neck: Yes: WNL, Supple, Trachea Midline Respiratory: Yes: WNL, Regular, CTA Bilaterally. No: Rales, Rhonchi, SOB, Wheezes Gastrointestinal: Yes: Normal Bowel Sounds, Soft Cardiovascular: Yes: Regular Rate and Rhythm. No: Bradycardia, Tachycardia, Pulse Irregular, Gallop, Rub, Varicosities JVD: No Carotid Bruit: No PMI: Non-Displaced Heart Sounds: Yes: S1, S2. No: Split S2, S3, S4, Clicks, Gallop, Rub, Bruit Murmur: No: Systolic Murmur, Diastolic Murmur Musculoskeletal: Yes: WNL Extremities: Yes: WNL Edema: No Peripheral Pulses WNL: Yes Peripheral Pulses: 2+ Left Doralis Pedis, 2+ Right Dorsalis Pedis Neurological: Yes: Alert, Oriented Psychiatric: Yes: Alert, Oriented - Other Data Labs, Other Data: CBC, BMP 01/11/18 06:15 01/11/18 06:15 INR, PTT INR 1.31 (0.83-1.09) H 01/11/18 06:15 ekg-sinus valeriy 54bpm otherwise normal ecg Echo: Report Reviewed Imaging - Results Chest X-ray: Report Reviewed, Image Reviewed EKG: Report Reviewed, Image Reviewed Other: Report Reviewed, Image Reviewed Assessment/Plan 37 year old man pmh obesity and HLD admitted with RLQ pain found to have possible R renal infarcts of unclear source. States that he was referred to a convolute tube winder as outpatient by his PMD which he states was just to have a check up. states he had an echo in his PMD's office that showed a mild valvular abnl but that he was told it was nothing to be concerned about. He did not yet see the convolute tube winder. No history of arrhythmias. pt denies palpitations, chest pain, sob, dizziness, lightheadedness, syncope, near syncope. CT/abdomen & pelvis 01/09/2018 shows multiple right renal hypodense nonenhancing lesion are seen consistent with either (1) multiple acute infarcts vs. multifocal acute pyelonephritis. Possible renal infarcts-unknown etiology -TTE showed normal LV/RV size and function, trace MR, trace TR, no cardiac source of emboli seen -CTA chest abd pelvis showed normal aorta, patent vessels -pt is on empiric AC at this time -pt informed me this am that he is NPO for TRICIA to further evaluate for cardiac source of embolism, will attempt to perform today -if TRICIA unrevealing would recommend Holter monitor inpatient and longer term event monitoring as outpatient to evaluate for occult Afib/aflutter -low likelihood of cardiac source of embolism given pts young age and few risk factors -cont other work up as per primary team
[2018-01-11] MEDS ORDERED: LIDOCAINE VISCOUS 2% ORAL/TOP 20 ML UNIT-DOSE CUP MM ONE (11:01)
--- NOTE | 2018-01-11 12:12 | ECHO ---
Name: PATTI, FELICIA Exam:Transesophageal Echocardiogram Study Date: 01/11/2018 10:56 AM Age: 37 yrs Reason For Study: Source of Emboli Height: 72 in Weight: 315 lb BSA: 2.6 m2 Procedure: A 2D transesophageal echocardiogram with Doppler and color flow Doppler was performed. Informed conse nt for Transesophageal Echocardiogram, and use of a contrast agent as needed, was obtained prior to the proc edure. The patient was brought to the endoscopy suite in a fasting state. An intravenous line was placed. A topical anesthetic agent was used for oropharangeal anesthesia. A bite block was inserted. IV concious sedati on was administered using propafol. The transesophageal probe was passed without difficulty. The usual views were obtained; basal, mid-esophageal, transgastric and aortic views. The patient's vital signs, including blood pressure, heart rate, pulse oximetry and cardiac rhythm were monitored throughout the procedure and r emained stable. The patient tolerated the procedure well without evidence of orophangeal or esophageal trauma . Contrast injection with agitated saline was performed. There were no complications. The patient was i n normal sinus rhythm during the exam. Left Ventricle The left ventricle is grossly normal size. Left ventricular systolic function is grossly normal. Right Ventricle The right ventricular systolic function is grossly normal. Atria No left atrial or left atrial appendage thrombus. The left atrial appendage velocity is normal. Color flow doppler and agitated saline injection demonstrates evidence of a small patent foramen ovale. Mitral Valve The mitral valve is normal. There is trace mitral regurgitation. Tricuspid Valve The tricuspid valve is normal. There is mild tricuspid regurgitation. Aortic Valve The aortic valve is normal in structure and function. The aortic valve is trileaflet. No aortic regur gitation is present. Pulmonic Valve The pulmonic valve is not well seen, but is grossly normal. There is no pulmonic valvular regurgitati on. Great Vessels Normal aortic arch, descending and ascending aorta. Pericardium/Pluera There is no pericardial effusion. Interpretation Summary Left ventricular systolic function is grossly normal. The right ventricular systolic function is grossly normal. No left atrial or left atrial appendage thrombus. The left atrial appendage velocity is normal. Color flow doppler and agitated saline injection demonstrates evidence of a small patent foramen oval e. There is trace mitral regurgitation. There is mild tricuspid regurgitation. Normal aortic arch, descending and ascending aorta MD Kobe Myers 01/11/2018 12:12 PM
--- NOTE | 2018-01-11 12:17 | PN ---
Progress Note (short form) - Note Progress Note: TRICIA was performed today. pt tolerated procedure well without cardiac complication. No cardiac source of embolism seen. There is evidence of a small patent foramen ovale. Keep NPO for 2 hours post procedure then check gag reflex and if positive can resume previous diet.
--- NOTE | 2018-01-11 12:19 | PN ---
Progress Note (short form) - Note Progress Note: Renal follow up for Renal infarction Pt seen and examined at the bedside awake and alert no acute complaints making urine denies any flank pain Vital Signs Temperature 97.8 F 01/11/18 11:21 Pulse Rate 85 01/11/18 11:53 Respiratory Rate 16 01/11/18 11:53 Blood Pressure 156/84 01/11/18 11:53 O2 Sat by Pulse Oximetry (%) 97 01/11/18 11:53 Intake & Output 01/08/18 01/09/18 01/10/18 01/11/18 23:59 23:59 23:59 23:59 Intake Total 530 1340 1540 Output Total 1500 500 Balance 530 -160 1040 Weight 142.882 kg NAD no LE edema CBC, BMP 01/11/18 06:15 01/11/18 06:15 Current Medications Acetaminophen (Tylenol -) 650 mg PO Q6H PRN PRN Reason: PAIN LEVEL 7-10 Atorvastatin Calcium (Lipitor -) 40 mg PO HS [facility] Last Admin: 01/10/18 22:05 Dose: 40 mg Docusate Sodium (Colace -) 100 mg PO TID [facility]ATH[facility] Last Admin: 01/11/18 06:25 Dose: 100 mg Heparin Sodium (Porcine) (Heparin -) 1,000 unit IVPUSH PRN PRN PRN Reason: Heparin Last Admin: 01/11/18 09:19 Dose: 1,000 unit Heparin Sodium (Porcine) (Heparin -) 5,000 unit IVPUSH PRN PRN PRN Reason: Heparin Last Admin: 01/10/18 10:25 Dose: 5,000 unit Sodium Chloride (Normal Saline -) 1,000 mls @ 100 mls/hr IV ASDIR KATHERIN Last Admin: 01/10/18 22:07 Dose: 100 mls/hr Ceftriaxone Sodium 2 gm/ (Dextrose) 100 mls @ 200 mls/hr IVPB DAILY [facility]; Protocol Last Admin: 01/11/18 10:00 Dose: 200 mls/hr Heparin Sodium/Dextrose (Heparin Infusion -) 25,000 units in 500 mls @ 20 mls/ hr IVPB TITR [facility]; Protocol Last Titration: 01/11/18 09:19 Dose: 1,350 unit/hr, 27 mls/hr Morphine Sulfate (Morphine Sulfate) 4 mg IVPUSH Q4H PRN PRN Reason: PAIN 4-6 Last Admin: 01/11/18 02:13 Dose: 4 mg Ondansetron HCl (Zofran Injection) 4 mg IVPUSH Q6H PRN PRN Reason: NAUSEA Ranitidine HCl (Zantac -) 150 mg PO BID [facility] Last Admin: 01/11/18 10:00 Dose: Not Given 37 year old AA gentleman with no significant past medical history who presented with right sided abd pain and found to have renal infarction vs pylonephritis on CT scan. #Renal infarction vs. pylonephritis (less likely pylonephritis given no WBC/LE on UA) #Hyperlipidemia #Pre-HTN/HTN Renal function remains stable imaging studies show no vascular pathology continue A/C as per Heme advised vigarous oral hydration given 2 contrast studies within the last 48 hours Trend renal function Thank you Carl Mercado DO
--- NOTE | 2018-01-11 13:27 | PN ---
Progress Note (short form) - Note Progress Note: PROGRESS NOTE FOR HEMATOLOGY/ONCOLOGY Patient seen and examined by me at bedside Patient S/P TRICIA with no cardiac source of embolism seen Patient reports adequate pain control with medications Denies any shortness of breath, fever, chills, nausea, vomiting, chest pain, palpitations. Vital Signs Temperature 97.8 F 01/11/18 11:21 Pulse Rate 85 01/11/18 11:53 Respiratory Rate 16 01/11/18 11:53 Blood Pressure 156/84 01/11/18 11:53 O2 Sat by Pulse Oximetry (%) 97 01/11/18 11:53 PHYSICAL EXAMINATION: GENERAL: Awake, alert, and fully oriented, in no acute distress. EYES: Pupils equal, round and reactive to light ENT: Oropharynx clear without exudates. Moist mucous membranes. LUNGS: Breath sounds equal, clear to auscultation bilaterally. No wheezes, and no crackles. No accessory muscle use. HEART: Regular rate and rhythm, normal S1 and S2 ABDOMEN: Soft, (+) tenderness upon palpation of RLQ, not distended, normoactive bowel sounds, no guarding, no rebound, no masses. No hepatomegaly or splenomegaly. EXTREMITIES:No peripheral edema. NEUROLOGICAL: Cranial nerves II-XII intact. Normal speech. Laboratory Tests 01/11/18 06:15 01/11/18 06:15 01/11/18 01/11/18 06:15 06:15 INR 1.31 H PTT (Actin FS) 46.2 H AST 48 H ALT 75 H Alkaline Phosphatase 102 Total Protein 7.3 Albumin 3.4 ASSESSMENT/PLAN: Patient is a 37 year old male who presented to the hospital for RLQ abdominal pain and CT A/P revealed multiple right renal hypodense nonenhancing lesion consistent with multiple acute infarcts. We were consulted for further evaluation and recommendation Problem List: RLQ abdominal Pain Multiple Acute Renal Infarcts-Unknown etiology HLD Obesity Plan: -TRICIA showed no cardiac source of emboli -CTA of chest, abdomen and pelvis showed normal aorta and no source of emboli -Patient may be in prothrombotic state with no famly history of strokes or VTE. -Factor V, antiphospholipid panel, Prothrombin gene orders approved today -Will begin bridging patient. Continue Heparin drip, will start with 7 of Warfarin today and 5 tomorrow. -Monitor INR and PTT
--- NOTE | 2018-01-11 14:18 | PN ---
Teaching Attending Note Name of Resident: Laisha Alonso ATTENDING PHYSICIAN STATEMENT I saw and evaluated the patient. I reviewed the resident's note and discussed the case with the resident. I agree with the resident's findings and plan as documented. SUBJECTIVE:Patient seen and examined Getting pain relief from morphine On IV heparin and bridging to coumadin Undergoing thrombophilia work up Last Vital Signs Temp Pulse Resp BP Pulse Ox 97.8 F 85 16 156/84 97 01/11/18 11:21 01/11/18 11:53 01/11/18 11:53 01/11/18 11:53 01/11/18 11:53 HEENT: KEYANNA, EOM Intact Oropharynx: No thrush, No mucositis Cor: RSR, No murmurs, No gallops Lungs: Clear to P&A, poor inspiratory effort Abd: Soft, Normal bowel sounds, No organomegaly Ext:No significant edema Skin: No rashes, Integument intact CBC, BMP 01/11/18 06:15 01/11/18 06:15 Current Medications Generic Name Dose Route Start Last Admin Trade Name Freq PRN Reason Stop Dose Admin Acetaminophen 650 mg 01/09/18 18:27 Tylenol - PO Q6H PRN PAIN LEVEL 7-10 Atorvastatin Calcium 40 mg 01/10/18 22:00 01/10/18 22:05 Lipitor - PO 40 mg HS KATHERIN Administration Docusate Sodium 100 mg 01/09/18 22:00 01/11/18 06:25 Colace - PO 100 mg TID KATHERIN Administration Heparin Sodium (Porcine) 1,000 unit 01/09/18 15:45 01/11/18 09:19 Heparin - IVPUSH 1,000 unit PRN PRN Administration Heparin Heparin Sodium (Porcine) 5,000 unit 01/09/18 15:45 01/10/18 10:25 Heparin - IVPUSH 5,000 unit PRN PRN Administration Heparin Sodium Chloride 1,000 mls @ 100 mls/hr 01/09/18 21:45 01/10/18 22:07 Normal Saline - IV 100 mls/hr ASDIR KATHERIN Administration Ceftriaxone Sodium 2 gm/ 100 mls @ 200 mls/hr 01/10/18 10:00 01/11/18 10:00 Dextrose IVPB 200 mls/hr DAILY KATHERIN Administration Protocol Heparin Sodium/Dextrose 25,000 units in 500 mls @ 20 mls/hr 01/10/18 17:10 09:19 Heparin Infusion - IVPB 1,350 unit/hr TITR KATHERIN 27 mls/hr Titration Protocol 1,000 UNIT/HR Morphine Sulfate 4 mg 01/09/18 18:24 01/11/18 12:34 Morphine Sulfate IVPUSH 4 mg Q4H PRN Administration PAIN 4-6 Ondansetron HCl 4 mg 01/09/18 18:53 Zofran Injection IVPUSH Q6H PRN NAUSEA Ranitidine HCl 150 mg 01/09/18 22:00 01/11/18 10:00 Zantac - PO Not Given BID [facility] Warfarin Sodium 7.5 mg 01/11/18 18:00 Coumadin - PO 01/11/18 18:01 ONCE@1800 ONE Impression: Renal infarcts No obvious atrial fib, atheromatous plaques , valvular defects on current studies to date. For thrombophilia work up. --(cannot do Protein C, S, ATIII on heparin or coumadin as they can give falsely low levels) Bridging heparin to coumadin. OBJECTIVE: ASSESSMENT AND PLAN:
--- NOTE | 2018-01-11 14:56 | CON.ID ---
Consult Consult Specialty:: infectious diseases Reason for Consultation:: r flank pain.r/o uti,pyelo - History of Present Illness Chief Complaint: rt flsnk pain History of Present Illness: This is a 37 year old AA gentleman with no significant past medical history who presented with right sided abd pain and found to have renal infarction vs pylonephritis on CT scan. Pt denies any history of CKD or kidney issues in the past. No hx of vascular procedures. No hx of Afib. ON Naproxen for right shoulder pain. No N/V/D. No fever or chills. No hx of autoimmune disease. Continues to have mild abd pain. No gross hematuria. currently patient continues to ahve rt sided flank pain he has no other medical problems he does have histories of cancer in his family patient was worked up and found to ahve suspicion of infarcts in the kidney vs infection and patient has been on cefriaxone - History Source History Provided By: Patient Limitations to Obtaining History: No Limitations - Past Medical History Cardio/Vascular: Yes: Hyperlipdemia - Alcohol/Substance Use Hx Alcohol Use: No - Smoking History Smoking history: Never smoked Have you smoked in the past 12 months: No - Social History Usual Living Arrangement: With Spouse ADL: Independent History of Recent Travel: No Home Medications - Allergies Allergies/Adverse Reactions: Allergies Allergy/AdvReac Type Severity Reaction Status Date / Time No Known Allergies Allergy Unverified 01/09/18 13:39 - Home Medications Home Medications: Ambulatory Orders Naproxen [Naprosyn -] 250 mg PO BID PRN 01/09/18 Review of Systems - Review of Systems Constitutional: reports: No Symptoms Eyes: reports: No Symptoms HENT: reports: No Symptoms Neck: reports: No Symptoms Cardiovascular: reports: No Symptoms Respiratory: reports: No Symptoms Gastrointestinal: reports: No Symptoms Genitourinary: reports: Flank Pain Breasts: reports: No Symptoms Reported Musculoskeletal: reports: No Symptoms Integumentary: reports: No Symptoms Neurological: reports: No Symptoms Endocrine: reports: No Symptoms Physical Exam Vital Signs: Vital Signs Temperature 97.8 F 01/11/18 11:21 Pulse Rate 85 01/11/18 11:53 Respiratory Rate 16 01/11/18 11:53 Blood Pressure 156/84 01/11/18 11:53 O2 Sat by Pulse Oximetry (%) 97 01/11/18 11:53 Constitutional: Yes: Well Nourished, No Distress, Calm, Obese Eyes: Yes: Conjunctiva Clear HENT: Yes: Atraumatic, Normocephalic Neck: Yes: Supple, Trachea Midline Cardiovascular: Yes: Regular Rate and Rhythm Respiratory: Yes: Regular, CTA Bilaterally Gastrointestinal: Yes: Normal Bowel Sounds, Soft Renal/: Yes: CVA Tenderness - Right, Other (rt flank pain,) Musculoskeletal: Yes: WNL Extremities: Yes: WNL Neurological: Yes: Alert, Oriented Psychiatric: Yes: Alert, Oriented Labs: CBC, BMP 01/11/18 06:15 01/11/18 06:15 Imaging - Results Chest X-ray: Report Reviewed, Image Reviewed Cat Scan: Report Reviewed, Image Reviewed Assessment/Plan this young patient with no medical problems coming with abd pain and now his imaging studies showing infarction vs infection all his cx results are negative i am leaning more towards renal infarct renal infarct obesity flank pain plan continue ceftriaxone close watch on pain monitor hematuria rest as per the team
[2018-01-11] MEDS ORDERED: WARFARIN NA 7.5 MG TABLET (FP) PO ONE (18:00)
[2018-01-11] MEDS ORDERED: MELATONIN 5 MG TABLETS PO ONE (19:49)
[2018-01-11] MEDS: ATORVASTATIN CA 80 MG TABLET (FP) PO SCH (21:46)
[2018-01-12] MEDS: HEPARIN NA (PORCINE) 5,000 UNITS/ML 1ML VIAL IVPUSH PRN (03:30)
[2018-01-12] MEDS: ACETAMINOPHEN 325 MG TABLET (FP) PO PRN ×2 (03:36→16:20)
[2018-01-12] MEDS: DOCUSATE SODIUM 100 MG CAPSULE (FP) PO SCH ×3 (06:28→23:00)
[2018-01-12] MEDS: SODIUM CHLORIDE 1,000 ML IV SCH ×3 (08:00→22:59)
[2018-01-12] MEDS: HEPARIN INFUSION - 25,000 UNITS/500 ML INFUS.BAG IVPB SCH ×2 (08:14→23:01)
[2018-01-12] MEDS ORDERED: DEXTROSE 5%-WATER 100 ML IVPB ONE (08:49)
[2018-01-12] MEDS: CEFTRIAXONE 2 GM in DEXTROSE 5%-WATER 100 ML IVPB SCH (09:14)
[2018-01-12] MEDS: RANITIDINE HCL 150 MG TABLET (FP) PO SCH ×2 (09:15→23:00)
[2018-01-12 09:16] LABS: BASO % 0.2 % (0-2.0); EOS % 0.5 % (0-4.5); HEMOGLOBIN 14.2 GM/dL (11.7-16.9); LYMPH % 22.8 % (8-40); MCH 28.8 pg (25.7-33.7); MCHC 34.6 g/dl (32.0-35.9); MEAN CELL VOLUME 83.1 fl (80-96); MONO % 10.4 % (3.8-10.2); NEUT % 66.1 % (42.8-82.8); PLATELET COUNT 200 K/MM3 (134-434); RBC 4.93 M/mm3 (4.00-5.60); RDW 14.9 % (11.9-15.9); WHITE BLOOD COUNT 8.5 K/mm3 (4.0-10.0)
[2018-01-12 09:58] LABS: ANION GAP 12 MMOL/L (8-16); BLOOD UREA NITROGEN 10 mg/dL (7-18); CALCIUM 8.6 mg/dL (8.5-10.1); CHLORIDE 103 mmol/L (98-107); CO2 23 mmol/L (21-32); GLUCOSE,RANDOM 129 mg/dL (74-106); SODIUM 137 mmol/L (136-145)
[2018-01-12 10:37] LABS: INR 1.28 (0.83-1.09); PROTHROMBIN TIME (PATIENT) 15.2 SEC (9.7-13.0)
[2018-01-12 10:40] LABS: ACTIVATED PTT 63.2 SECONDS (25.2-36.5)
--- NOTE | 2018-01-12 11:08 | PN ---
Progress Note, Physician History of Present Illness: continues to have flank pain no other issues - Current Medication List Current Medications: Active Medications Acetaminophen (Tylenol -) 650 mg PO Q6H PRN PRN Reason: PAIN LEVEL 7-10 Last Admin: 01/12/18 03:36 Dose: 650 mg Atorvastatin Calcium (Lipitor -) 40 mg PO HS [facility] Last Admin: 01/11/18 21:46 Dose: 40 mg Docusate Sodium (Colace -) 100 mg PO TID [facility] Last Admin: 01/12/18 06:28 Dose: 100 mg Heparin Sodium (Porcine) (Heparin -) 1,000 unit IVPUSH PRN PRN PRN Reason: Heparin Last Admin: 01/11/18 19:30 Dose: 1,000 unit Heparin Sodium (Porcine) (Heparin -) 5,000 unit IVPUSH PRN PRN PRN Reason: Heparin Last Admin: 01/12/18 03:30 Dose: 5,000 unit Sodium Chloride (Normal Saline -) 1,000 mls @ 100 mls/hr IV ASDIR [facility] Last Admin: 01/12/18 08:00 Dose: 100 mls/hr Ceftriaxone Sodium 2 gm/ (Dextrose) 100 mls @ 200 mls/hr IVPB DAILY [facility]; Protocol Last Admin: 01/12/18 09:14 Dose: 200 mls/hr Heparin Sodium/Dextrose (Heparin Infusion -) 25,000 units in 500 mls @ 20 mls/ hr IVPB TITR [facility]; Protocol Last Admin: 01/12/18 08:14 Dose: 1,600 unit/hr, 32 mls/hr Morphine Sulfate (Morphine Sulfate) 4 mg IVPUSH Q4H PRN PRN Reason: PAIN 4-6 Last Admin: 01/11/18 20:24 Dose: 4 mg Ondansetron HCl (Zofran Injection) 4 mg IVPUSH Q6H PRN PRN Reason: NAUSEA Ranitidine HCl (Zantac -) 150 mg PO BID [facility] Last Admin: 01/12/18 09:15 Dose: 150 mg - Objective Vital Signs: Vital Signs Temperature 99.5 F 01/12/18 06:00 Pulse Rate 83 01/12/18 06:00 Respiratory Rate 18 01/12/18 06:00 Blood Pressure 128/70 01/12/18 06:00 O2 Sat by Pulse Oximetry (%) 97 01/11/18 21:00 Constitutional: Yes: No Distress, Calm, Obese Cardiovascular: Yes: Regular Rate and Rhythm Respiratory: Yes: Regular, CTA Bilaterally Gastrointestinal: Yes: Normal Bowel Sounds, Soft Musculoskeletal: Yes: WNL Extremities: Yes: WNL Neurological: Yes: Alert, Oriented Psychiatric: Yes: Alert, Oriented Labs: CBC, BMP 01/12/18 08:55 01/12/18 08:55 INR, PTT INR 1.28 (0.83-1.09) H 01/12/18 08:55 Assessment/Plan this young patient with no medical problems coming with abd pain and now his imaging studies showing infarction vs infection all his cx results are negative i am leaning more towards renal infarct renal infarct obesity flank pain plan will consider stopping ceftriaxone tomorrow close watch on pain monitor hematuria rest as per the team
--- NOTE | 2018-01-12 11:09 | PN ---
Progress Note (short form) - Note Progress Note: Renal follow up for Renal infarction pt seen and examined at the bedside continues to have mild flank pain no sob, cp, fever, chills, N/V/D Vital Signs Temperature 99.5 F 01/12/18 06:00 Pulse Rate 83 01/12/18 06:00 Respiratory Rate 18 01/12/18 06:00 Blood Pressure 128/70 01/12/18 06:00 O2 Sat by Pulse Oximetry (%) 97 01/11/18 21:00 Intake & Output 01/09/18 01/10/18 01/11/18 01/12/18 23:59 23:59 23:59 23:59 Intake Total 530 1340 3426 850 Output Total 1500 500 Balance 530 -160 2926 850 Weight 142.882 kg NAD awake and alert neck supple, no JVD no Le edema CBC, BMP 01/12/18 08:55 01/12/18 08:55 Laboratory Tests 01/12/18 08:55 Calcium 8.6 Magnesium 2.0 Current Medications Acetaminophen (Tylenol -) 650 mg PO Q6H PRN PRN Reason: PAIN LEVEL 7-10 Last Admin: 01/12/18 03:36 Dose: 650 mg Atorvastatin Calcium (Lipitor -) 40 mg PO HS [facility] Last Admin: 01/11/18 21:46 Dose: 40 mg Docusate Sodium (Colace -) 100 mg PO TID [facility] Last Admin: 01/12/18 06:28 Dose: 100 mg Heparin Sodium (Porcine) (Heparin -) 1,000 unit IVPUSH PRN PRN PRN Reason: Heparin Last Admin: 01/11/18 19:30 Dose: 1,000 unit Heparin Sodium (Porcine) (Heparin -) 5,000 unit IVPUSH PRN PRN PRN Reason: Heparin Last Admin: 01/12/18 03:30 Dose: 5,000 unit Sodium Chloride (Normal Saline -) 1,000 mls @ 100 mls/hr IV ASDIR KATHERIN Last Admin: 01/12/18 08:00 Dose: 100 mls/hr Ceftriaxone Sodium 2 gm/ (Dextrose) 100 mls @ 200 mls/hr IVPB DAILY [facility]; Protocol Last Admin: 01/12/18 09:14 Dose: 200 mls/hr Heparin Sodium/Dextrose (Heparin Infusion -) 25,000 units in 500 mls @ 20 mls/ hr IVPB TITR [facility]; Protocol Last Admin: 01/12/18 08:14 Dose: 1,600 unit/hr, 32 mls/hr Morphine Sulfate (Morphine Sulfate) 4 mg IVPUSH Q4H PRN PRN Reason: PAIN 4-6 Last Admin: 01/11/18 20:24 Dose: 4 mg Ondansetron HCl (Zofran Injection) 4 mg IVPUSH Q6H PRN PRN Reason: NAUSEA Ranitidine HCl (Zantac -) 150 mg PO BID [facility] Last Admin: 01/12/18 09:15 Dose: 150 mg 37 year old AA gentleman with no significant past medical history who presented with right sided abd pain and found to have renal infarction vs pylonephritis on CT scan. #Renal infarction vs. pylonephritis (less likely pylonephritis given no WBC/LE on UA) #Hyperlipidemia #Pre-HTN/HTN Renal function stable at this time, 48 hours s/p contrast exposure pt is evolemic and non-oliguric continue A/C as per Heme stable for discharge from renal perspective with outpatient follow up and monitoring of renal function Thank you Carl Mercado DO
--- NOTE | 2018-01-12 12:06 | PN ---
Progress Note (short form) - Note Progress Note: PROGRESS NOTE FOR HEMATOLOGY/ONCOLOGY Patient seen and examined by me at bedside Still has flank and abdominal pain Patient reports adequate pain control with medications Denies any shortness of breath, fever, chills, nausea, vomiting, chest pain, palpitations. Vital Signs Temperature 98.5 F 01/12/18 10:00 Pulse Rate 95 H 01/12/18 10:00 Respiratory Rate 20 01/12/18 10:00 Blood Pressure 126/74 01/12/18 10:00 O2 Sat by Pulse Oximetry (%) 97 01/12/18 09:00 PHYSICAL EXAMINATION: GENERAL: Awake, alert, and fully oriented, in no acute distress. EYES: Pupils equal, round and reactive to light ENT: Moist mucous membranes. LUNGS: Breath sounds equal, clear to auscultation bilaterally. No wheezes, and no crackles. No accessory muscle use. HEART: Regular rate and rhythm, normal S1 and S2 ABDOMEN: Soft, (+) tenderness upon palpation of RLQ, not distended, normoactive bowel sounds EXTREMITIES:No peripheral edema. Laboratory Tests 01/12/18 08:55 01/12/18 08:55 ASSESSMENT/PLAN: Patient is a 37 year old male who presented to the hospital for RLQ abdominal pain and CT A/P revealed multiple right renal hypodense nonenhancing lesion consistent with multiple acute infarcts. We were consulted for further evaluation and recommendation Problem List: RLQ abdominal Pain Multiple Acute Renal Infarcts-Unknown etiology HLD Obesity Plan: -TRICIA showed no cardiac source of emboli -CTA of chest, abdomen and pelvis showed normal aorta and no source of emboli -Factor V, antiphospholipid panel, Prothrombin gene pending -Continue Lovenox and bridge to Warfarin. -ID may begin IV Abx with Ceftriaxone for flank pain -Monitor INR and PTT
[2018-01-12] MEDS: morphine SULFATE 4 MG/ML VIAL IVPUSH PRN ×3 (13:26→23:05)
--- NOTE | 2018-01-12 13:31 | PN ---
Physical Exam: SUBJECTIVE: Patient seen and examined; no events reported overnight. Continues bridging to warfarin. D/W ID and Heme; ID concerned with potential infarct from issue with renal artery and we are discussing from multidisciplinary perspective this PM. Pain somewhat improved from yesterday. No further hematuria. Doing well with no further complaints. 10 sys ROS done and negative aside from HPI OBJECTIVE: Vital Signs Period Temp Pulse Resp BP Sys/Spear Pulse Ox Last 24 Hr 98.5 F-99.5 F 82-95 18-20 119-139/61-74 97-97 GENERAL: The patient is awake, alert, and fully oriented, in no acute distress. HEAD: Normal with no signs of trauma. EYES: PERRL, extraocular movements intact, sclera anicteric, conjunctiva clear. No ptosis. ENT: Ears normal, nares patent, oropharynx clear NECK: Trachea midline, full range of motion, supple. LUNGS: Breath sounds equal, clear to auscultation bilaterally, no wheezes HEART: Regular rate and rhythm, S1, S2 without murmur, rub or gallop. ABDOMEN: Soft, nontender, nondistended, normoactive bowel sounds; some R-flank pain but better than yesterday. EXTREMITIES: 2+ pulses, warm, well-perfused, no edema. NEUROLOGICAL: Cranial nerves II through XII grossly intact. Normal speech, gait not observed. PSYCH: Normal mood, normal affect. SKIN: Warm, dry, normal turgor, no rashes or lesions noted Laboratory Results - last 24 hr 01/11/18 01/11/18 01/11/18 17:20 17:20 17:50 WBC RBC Hgb Hct MCV MCH MCHC RDW Plt Count MPV Absolute Neuts (auto) Neutrophils % Lymphocytes % Monocytes % Eosinophils % Basophils % Nucleated RBC % ESR 33 H PT with INR INR PTT (Actin FS) 45.7 H Sodium Potassium Chloride Carbon Dioxide Anion Gap BUN Creatinine Creat Clearance w eGFR Random Glucose Calcium Magnesium C-Reactive Protein 12.8 H 01/12/18 01/12/18 01/12/18 02:40 08:55 08:55 WBC 8.5 RBC 4.93 Hgb 14.2 Hct 41.0 MCV 83.1 MCH 28.8 MCHC 34.6 RDW 14.9 Plt Count 200 MPV 8.0 Absolute Neuts (auto) 5.6 Neutrophils % 66.1 Lymphocytes % 22.8 D Monocytes % 10.4 H Eosinophils % 0.5 Basophils % 0.2 Nucleated RBC % 0 ESR PT with INR INR PTT (Actin FS) 37.0 H Sodium 137 Potassium 4.0 Chloride 103 Carbon Dioxide 23 Anion Gap 12 BUN 10 Creatinine 1.0 Creat Clearance w eGFR > 60 Random Glucose 129 H Calcium 8.6 Magnesium 2.0 C-Reactive Protein 01/12/18 08:55 WBC RBC Hgb Hct MCV MCH MCHC RDW Plt Count MPV Absolute Neuts (auto) Neutrophils % Lymphocytes % Monocytes % Eosinophils % Basophils % Nucleated RBC % ESR PT with INR 15.20 H INR 1.28 H PTT (Actin FS) 63.2 H Sodium Potassium Chloride Carbon Dioxide Anion Gap BUN Creatinine Creat Clearance w eGFR Random Glucose Calcium Magnesium C-Reactive Protein Active Medications Generic Name Dose Route Start Last Admin Trade Name Freq PRN Reason Stop Dose Admin Acetaminophen 650 mg 01/09/18 18:27 01/12/18 03:36 Tylenol - PO 650 mg Q6H PRN Administration PAIN LEVEL 7-10 Atorvastatin Calcium 40 mg 01/10/18 22:00 01/11/18 21:46 Lipitor - PO 40 mg HS KATHERIN Administration Docusate Sodium 100 mg 01/09/18 22:00 01/12/18 06:28 Colace - PO 100 mg TID KATHERIN Administration Heparin Sodium (Porcine) 1,000 unit 01/09/18 15:45 01/11/18 19:30 Heparin - IVPUSH 1,000 unit PRN PRN Administration Heparin Heparin Sodium (Porcine) 5,000 unit 01/09/18 15:45 01/12/18 03:30 Heparin - IVPUSH 5,000 unit PRN PRN Administration Heparin Sodium Chloride 1,000 mls @ 100 mls/hr 01/09/18 21:45 01/12/18 08:00 Normal Saline - IV 100 mls/hr ASDIR KATHERIN Administration Ceftriaxone Sodium 2 gm/ 100 mls @ 200 mls/hr 01/10/18 10:00 01/12/18 09:14 Dextrose IVPB 200 mls/hr DAILY KATHERIN Administration Protocol Heparin Sodium/Dextrose 25,000 units in 500 mls @ 20 mls/hr 01/10/18 17:10 08:14 Heparin Infusion - IVPB 1,600 unit/hr TITR KATHERIN 32 mls/hr Administration Protocol 1,000 UNIT/HR Morphine Sulfate 4 mg 01/09/18 18:24 01/11/18 20:24 Morphine Sulfate IVPUSH 4 mg Q4H PRN Administration PAIN 4-6 Ondansetron HCl 4 mg 01/09/18 18:53 Zofran Injection IVPUSH Q6H PRN NAUSEA Ranitidine HCl 150 mg 01/09/18 22:00 01/12/18 09:15 Zantac - PO 150 mg BID KATHERIN Administration ASSESSMENT/PLAN: 1) Renal Infarction vs. Pyelonephritis -Per ID given negative culture results, etc. more likely infarction as opposed to infection. Completing ceftriaxone per their service. Concern of RA spasm per ID; discussing with consulting services -Hypercoagulable workup with heme pending. Continue bridging to warfarin per heme; got 7.5 last night now 5 tonight. INR subtherapeutic. -Renal, heme, ID input appreciated. -Per sgy, there is no need for further vascular testing. US LE negative for DVT. The CTA results have been reviewed; patent renal arteries with R-renal infarct vs. infect. TRICIA negative. -Trend CBC, monitor for fevers. ESR only slightly elevated 2) PFO -Small patent PFO seen on TRICIA; followup OP 3) Hyperlipidemia -On statin; cmp in AM 4) Obesity -[employer] prior to DC Full Code Visit type - Emergency Visit Emergency Visit: No - New Patient This patient is new to me today: No - Critical Care Critical Care patient: No
--- NOTE | 2018-01-12 15:24 | PN ---
Teaching Attending Note Name of Resident: Laisha Alonso ATTENDING PHYSICIAN STATEMENT I saw and evaluated the patient. I reviewed the resident's note and discussed the case with the resident. I agree with the resident's findings and plan as documented. SUBJECTIVE:Patient seen and examined Being bridged from heparin to coumadin. Current thinking favors infarct > infection Etiology still not ascertained . Awaiting thrombophilia work up . TRICIA- small PFO - outpatient work up. Last Vital Signs Temp Pulse Resp BP Pulse Ox 98.5 F 95 H 20 126/74 97 01/12/18 10:00 01/12/18 10:00 01/12/18 10:00 01/12/18 10:00 01/12/18 09:00 HEENT: KEYANNA, EOM Intact Oropharynx: No thrush, No mucositis Cor: RSR, No murmurs, No gallops Lungs: Clear to P&A Abd: Soft, Normal bowel sounds, No organomegaly Ext:No significant edema Skin: No rashes, Integument intact CBC, BMP 01/12/18 08:55 01/12/18 08:55 Current Medications Generic Name Dose Route Start Last Admin Trade Name Freq PRN Reason Stop Dose Admin Acetaminophen 650 mg 01/09/18 18:27 01/12/18 03:36 Tylenol - PO 650 mg Q6H PRN Administration PAIN LEVEL 7-10 Atorvastatin Calcium 40 mg 01/10/18 22:00 01/11/18 21:46 Lipitor - PO 40 mg HS KATHERIN Administration Docusate Sodium 100 mg 01/09/18 22:00 01/12/18 14:22 Colace - PO 100 mg TID KATHERIN Administration Heparin Sodium (Porcine) 1,000 unit 01/09/18 15:45 01/11/18 19:30 Heparin - IVPUSH 1,000 unit PRN PRN Administration Heparin Heparin Sodium (Porcine) 5,000 unit 01/09/18 15:45 01/12/18 03:30 Heparin - IVPUSH 5,000 unit PRN PRN Administration Heparin Sodium Chloride 1,000 mls @ 100 mls/hr 01/09/18 21:45 01/12/18 08:00 Normal Saline - IV 100 mls/hr ASDIR KATHERIN Administration Ceftriaxone Sodium 2 gm/ 100 mls @ 200 mls/hr 01/10/18 10:00 01/12/18 09:14 Dextrose IVPB 200 mls/hr DAILY KATHERIN Administration Protocol Heparin Sodium/Dextrose 25,000 units in 500 mls @ 20 mls/hr 01/10/18 17:10 08:14 Heparin Infusion - IVPB 1,600 unit/hr TITR KATHERIN 32 mls/hr Administration Protocol 1,000 UNIT/HR Morphine Sulfate 4 mg 01/09/18 18:24 01/12/18 13:26 Morphine Sulfate IVPUSH 4 mg Q4H PRN Administration PAIN 4-6 Ondansetron HCl 4 mg 01/09/18 18:53 Zofran Injection IVPUSH Q6H PRN NAUSEA Ranitidine HCl 150 mg 01/09/18 22:00 01/12/18 09:15 Zantac - PO 150 mg BID KATHERIN Administration Impression: Likely renal infarct Etiology unclear Thrombophilia work up pending Bridging heparin to coumadin. OBJECTIVE: ASSESSMENT AND PLAN:
--- NOTE | 2018-01-12 15:39 | PN ---
Progress Note, Physician History of Present Illness: seen and examined today in nad. no overnight events. no new complaints. - Current Medication List Current Medications: Active Medications Acetaminophen (Tylenol -) 650 mg PO Q6H PRN PRN Reason: PAIN LEVEL 7-10 Last Admin: 01/12/18 03:36 Dose: 650 mg Atorvastatin Calcium (Lipitor -) 40 mg PO HS [facility] Last Admin: 01/11/18 21:46 Dose: 40 mg Docusate Sodium (Colace -) 100 mg PO TID [facility] Last Admin: 01/12/18 14:22 Dose: 100 mg Heparin Sodium (Porcine) (Heparin -) 1,000 unit IVPUSH PRN PRN PRN Reason: Heparin Last Admin: 01/11/18 19:30 Dose: 1,000 unit Heparin Sodium (Porcine) (Heparin -) 5,000 unit IVPUSH PRN PRN PRN Reason: Heparin Last Admin: 01/12/18 03:30 Dose: 5,000 unit Sodium Chloride (Normal Saline -) 1,000 mls @ 100 mls/hr IV ASDIR [facility] Last Admin: 01/12/18 08:00 Dose: 100 mls/hr Ceftriaxone Sodium 2 gm/ (Dextrose) 100 mls @ 200 mls/hr IVPB DAILY [facility]; Protocol Last Admin: 01/12/18 09:14 Dose: 200 mls/hr Heparin Sodium/Dextrose (Heparin Infusion -) 25,000 units in 500 mls @ 20 mls/ hr IVPB TITR [facility]; Protocol Last Admin: 01/12/18 08:14 Dose: 1,600 unit/hr, 32 mls/hr Morphine Sulfate (Morphine Sulfate) 4 mg IVPUSH Q4H PRN PRN Reason: PAIN 4-6 Last Admin: 01/12/18 13:26 Dose: 4 mg Ondansetron HCl (Zofran Injection) 4 mg IVPUSH Q6H PRN PRN Reason: NAUSEA Ranitidine HCl (Zantac -) 150 mg PO BID [facility] Last Admin: 01/12/18 09:15 Dose: 150 mg - Objective Vital Signs: Vital Signs Temperature 98.3 F 01/12/18 15:28 Pulse Rate 82 01/12/18 15:28 Respiratory Rate 18 01/12/18 15:28 Blood Pressure 128/60 01/12/18 15:28 O2 Sat by Pulse Oximetry (%) 97 01/12/18 09:00 Constitutional: Yes: No Distress, Calm Eyes: Yes: Conjunctiva Clear, EOM Intact, PERRL HENT: Yes: Atraumatic, Normocephalic Neck: Yes: Supple, Trachea Midline Cardiovascular: Yes: Regular Rate and Rhythm, S1, S2. No: Bradycardia, Tachycardia, Pulse Irregular, Bruit, JVD, Gallop, Murmur, Rub, S3, S4, Varicosities Respiratory: Yes: Regular, CTA Bilaterally. No: Rales, Rhonchi, Wheezes Gastrointestinal: Yes: Normal Bowel Sounds, Soft. No: Distention, Tenderness Musculoskeletal: Yes: WNL Extremities: Yes: WNL Edema: No Peripheral Pulses WNL: Yes Peripheral Pulses: Left Doralis Pedis: 2+, Right Dorsalis Pedis: 2+ Neurological: Yes: Alert, Oriented Psychiatric: Yes: Alert, Oriented Labs: CBC, BMP 01/12/18 08:55 01/12/18 08:55 INR, PTT INR 1.28 (0.83-1.09) H 01/12/18 08:55 - ....Imaging Chest X-ray: Report Reviewed, Image Reviewed EKG: Report Reviewed, Image Reviewed Other: Report Reviewed, Image Reviewed Assessment/Plan 37 year old man pmh obesity and HLD admitted with RLQ pain found to have possible R renal infarcts of unclear source. States that he was referred to a computer aided drafter as outpatient by his PMD which he states was just to have a check up. states he had an echo in his PMD's office that showed a mild valvular abnl but that he was told it was nothing to be concerned about. He did not yet see the computer aided drafter. No history of arrhythmias. pt denies palpitations, chest pain, sob, dizziness, lightheadedness, syncope, near syncope. CT/abdomen & pelvis 01/09/2018 shows multiple right renal hypodense nonenhancing lesion are seen consistent with either (1) multiple acute infarcts vs. multifocal acute pyelonephritis. Possible renal infarcts-unknown etiology -TTE showed normal LV/RV size and function, trace MR, trace TR, no cardiac source of emboli seen -CTA chest abd pelvis showed normal aorta, patent vessels -TRICIA 01/11/18 showed no cardiac source of embolism but a small pfo -LE dopplers showed no DVT -pt is on empiric AC at this time with heparin bridge to coumadin while work up is being completed -no indication for PFO closure at this time -hypercoagulable work up pending -depending on clinical course and diagnostic results including hypercoagulable work up a pfo closure may be considered in the future as outpatient, discussed this with patient, he will need outpatient fup -Would recommend longer term event monitoring as outpatient to evaluate for occult Afib/aflutter -cont other work up as per primary team No additional inpatient cardiac work up needed at this time. Please call with any additional questions.
[2018-01-12] MEDS: ATORVASTATIN CA 80 MG TABLET (FP) PO SCH (23:00)
[2018-01-13] MEDS: SODIUM CHLORIDE 1,000 ML IV SCH (04:04)
[2018-01-13] MEDS: DOCUSATE SODIUM 100 MG CAPSULE (FP) PO SCH ×3 (06:23→21:02)
--- NOTE | 2018-01-13 08:39 | PN ---
Physical Exam: SUBJECTIVE: Patient seen and examined; no events reported overnight. Has on and off headaches he thinks are related to cleaning solutions in the hospital. No red flag symptoms with his headaches. He is afebrile and hemodynamically stable. PTT within range but INR still subtherapeutic. ID is stopping abx. Bridging to warfarin per hematology. Appreciate input from subspecialty services. 10 sys ROS done and negative aside from HPI OBJECTIVE: Vital Signs Period Temp Pulse Resp BP Sys/Spear Pulse Ox Last 24 Hr 98.3 F-99.1 F 68-95 18-20 126-137/57-74 97-97 GENERAL: The patient is awake, alert, and fully oriented, in no acute distress. HEAD: Normal with no signs of trauma. EYES: PERRL, extraocular movements intact, sclera anicteric, conjunctiva clear. No ptosis. ENT: Ears normal, nares patent, oropharynx clear without exudates, moist mucous membranes. NECK: Trachea midline, full range of motion, supple. LUNGS: Breath sounds equal, clear to auscultation bilaterally, no wheezes, no crackles, no accessory muscle use. HEART: Regular rate and rhythm, S1, S2 without murmur, rub or gallop. ABDOMEN: Soft, nontender, nondistended, normoactive bowel sounds, no guarding, no rebound, no hepatosplenomegaly, no masses. EXTREMITIES: 2+ pulses, warm, well-perfused, no edema. NEUROLOGICAL: Cranial nerves II through XII grossly intact. Normal speech, gait not observed. PSYCH: Normal mood, normal affect. SKIN: Warm, dry, normal turgor, no rashes or lesions noted Laboratory Results - last 24 hr 01/12/18 01/12/18 01/12/18 08:55 08:55 08:55 WBC 8.5 RBC 4.93 Hgb 14.2 Hct 41.0 MCV 83.1 MCH 28.8 MCHC 34.6 RDW 14.9 Plt Count 200 MPV 8.0 Absolute Neuts (auto) 5.6 Neutrophils % 66.1 Lymphocytes % 22.8 D Monocytes % 10.4 H Eosinophils % 0.5 Basophils % 0.2 Nucleated RBC % 0 PT with INR 15.20 H INR 1.28 H PTT (Actin FS) 63.2 H Sodium 137 Potassium 4.0 Chloride 103 Carbon Dioxide 23 Anion Gap 12 BUN 10 Creatinine 1.0 Creat Clearance w eGFR > 60 Random Glucose 129 H Calcium 8.6 Magnesium 2.0 01/13/18 06:00 WBC RBC Hgb Hct MCV MCH MCHC RDW Plt Count MPV Absolute Neuts (auto) Neutrophils % Lymphocytes % Monocytes % Eosinophils % Basophils % Nucleated RBC % PT with INR INR PTT (Actin FS) 54.7 H Sodium Potassium Chloride Carbon Dioxide Anion Gap BUN Creatinine Creat Clearance w eGFR Random Glucose Calcium Magnesium Active Medications Generic Name Dose Route Start Last Admin Trade Name Freq PRN Reason Stop Dose Admin Acetaminophen 650 mg 01/09/18 18:27 01/12/18 16:20 Tylenol - PO 650 mg Q6H PRN Administration PAIN LEVEL 7-10 Atorvastatin Calcium 40 mg 01/10/18 22:00 01/12/18 23:00 Lipitor - PO 40 mg HS KATHERIN Administration Docusate Sodium 100 mg 01/09/18 22:00 01/13/18 06:23 Colace - PO 100 mg TID KATHERIN Administration Heparin Sodium (Porcine) 1,000 unit 01/09/18 15:45 01/11/18 19:30 Heparin - IVPUSH 1,000 unit PRN PRN Administration Heparin Heparin Sodium (Porcine) 5,000 unit 01/09/18 15:45 01/12/18 03:30 Heparin - IVPUSH 5,000 unit PRN PRN Administration Heparin Sodium Chloride 1,000 mls @ 100 mls/hr 01/09/18 21:45 01/13/18 04:04 Normal Saline - IV 100 mls/hr ASDIR KATHERIN Administration Ceftriaxone Sodium 2 gm/ 100 mls @ 200 mls/hr 01/10/18 10:00 01/12/18 09:14 Dextrose IVPB 200 mls/hr DAILY KATHERIN Administration Protocol Heparin Sodium/Dextrose 25,000 units in 500 mls @ 20 mls/hr 01/10/18 17:10 23:01 Heparin Infusion - IVPB 1,600 unit/hr TITR KATHERIN 32 mls/hr Administration Protocol 1,000 UNIT/HR Morphine Sulfate 4 mg 01/09/18 18:24 01/12/18 23:05 Morphine Sulfate IVPUSH 4 mg Q4H PRN Administration PAIN 4-6 Ondansetron HCl 4 mg 01/09/18 18:53 Zofran Injection IVPUSH Q6H PRN NAUSEA Ranitidine HCl 150 mg 01/09/18 22:00 01/12/18 23:00 Zantac - PO 150 mg BID KATHERIN Administration ASSESSMENT/PLAN: 1) Renal Infarction vs. Pyelonephritis -Per ID given negative culture results, etc. more likely infarction as opposed to infection. Off abx per ID; monitor WBC and for fevers. -Hypercoagulable workup with heme pending. Continue bridging to warfarin per heme; continuing coumadin per their service, following QD INR. -Renal, heme, ID input appreciated. -Per sgy, there is no need for further vascular testing. US LE negative for DVT. The CTA results have been reviewed; patent renal arteries with R-renal infarct vs. infect. TRICIA negative. -Trend CBC, monitor for fevers. 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
[2018-01-13] MEDS ORDERED: DEXTROSE 5%-WATER 100 ML IVPB ONE (09:12)
[2018-01-13] MEDS: CEFTRIAXONE 2 GM in DEXTROSE 5%-WATER 100 ML IVPB SCH (09:17)
[2018-01-13] MEDS: RANITIDINE HCL 150 MG TABLET (FP) PO SCH ×2 (09:17→21:02)
[2018-01-13 09:46] LABS: BASO % 0.4 % (0-2.0); EOS % 1.7 % (0-4.5); HEMATOCRIT 40.8 % (35.4-49); LYMPH % 25.1 % (8-40); MCH 26.8 pg (25.7-33.7); MCHC 31.8 g/dl (32.0-35.9); MEAN CELL VOLUME 84.2 fl (80-96); MEAN PLT VOLUME 7.7 fl (7.5-11.1); MONO % 8.1 % (3.8-10.2); NEUT % 64.7 % (42.8-82.8); PLATELET COUNT 193 K/MM3 (134-434); RBC 4.84 M/mm3 (4.00-5.60); WHITE BLOOD COUNT 6.2 K/mm3 (4.0-10.0)
[2018-01-13 10:00] LABS: INR 1.34 (0.83-1.09); PROTHROMBIN TIME (PATIENT) 15.9 SEC (9.7-13.0)
[2018-01-13 10:08] LABS: ANION GAP 9 MMOL/L (8-16); BLOOD UREA NITROGEN 8 mg/dL (7-18); CALCIUM 8.4 mg/dL (8.5-10.1); CHLORIDE 104 mmol/L (98-107); CO2 25 mmol/L (21-32); CREATININE 1.1 mg/dL (0.55-1.3); GLUCOSE,RANDOM 136 mg/dL (74-106); POTASSIUM 3.9 mmol/L (3.5-5.1); SODIUM 138 mmol/L (136-145)
--- NOTE | 2018-01-13 10:25 | PN ---
Progress Note, Physician History of Present Illness: patient doing well no pain today - Current Medication List Current Medications: Active Medications Acetaminophen (Tylenol -) 650 mg PO Q6H PRN PRN Reason: PAIN LEVEL 7-10 Last Admin: 01/12/18 16:20 Dose: 650 mg Atorvastatin Calcium (Lipitor -) 40 mg PO HS [facility] Last Admin: 01/12/18 23:00 Dose: 40 mg Docusate Sodium (Colace -) 100 mg PO TID [facility] Last Admin: 01/13/18 06:23 Dose: 100 mg Heparin Sodium (Porcine) (Heparin -) 1,000 unit IVPUSH PRN PRN PRN Reason: Heparin Last Admin: 01/11/18 19:30 Dose: 1,000 unit Heparin Sodium (Porcine) (Heparin -) 5,000 unit IVPUSH PRN PRN PRN Reason: Heparin Last Admin: 01/12/18 03:30 Dose: 5,000 unit Sodium Chloride (Normal Saline -) 1,000 mls @ 100 mls/hr IV ASDIR [facility] Last Admin: 01/13/18 04:04 Dose: 100 mls/hr Ceftriaxone Sodium 2 gm/ (Dextrose) 100 mls @ 200 mls/hr IVPB DAILY [facility]; Protocol Last Admin: 01/13/18 09:17 Dose: 200 mls/hr Heparin Sodium/Dextrose (Heparin Infusion -) 25,000 units in 500 mls @ 20 mls/ hr IVPB TITR [facility]; Protocol Last Admin: 01/12/18 23:01 Dose: 1,600 unit/hr, 32 mls/hr Morphine Sulfate (Morphine Sulfate) 4 mg IVPUSH Q4H PRN PRN Reason: PAIN 4-6 Last Admin: 01/12/18 23:05 Dose: 4 mg Ondansetron HCl (Zofran Injection) 4 mg IVPUSH Q6H PRN PRN Reason: NAUSEA Ranitidine HCl (Zantac -) 150 mg PO BID [facility] Last Admin: 01/13/18 09:17 Dose: 150 mg - Objective Vital Signs: Vital Signs Temperature 98.8 F 01/13/18 04:00 Pulse Rate 77 01/13/18 04:00 Respiratory Rate 18 01/13/18 04:00 Blood Pressure 137/69 01/13/18 04:00 O2 Sat by Pulse Oximetry (%) 97 01/12/18 21:00 Constitutional: Yes: No Distress, Calm Cardiovascular: Yes: Regular Rate and Rhythm Respiratory: Yes: Regular, CTA Bilaterally Gastrointestinal: Yes: Normal Bowel Sounds, Soft Musculoskeletal: Yes: WNL Extremities: Yes: WNL Neurological: Yes: Alert, Oriented Psychiatric: Yes: Alert, Oriented Labs: CBC, BMP 01/13/18 09:10 01/13/18 09:10 INR, PTT INR 1.34 (0.83-1.09) H 01/13/18 09:10 Assessment/Plan renal infarct obesity flank pain plan will stop abx today close watch rest as per the team and heam
[2018-01-13] MEDS: morphine SULFATE 4 MG/ML VIAL IVPUSH PRN ×2 (12:51→18:56)
--- NOTE | 2018-01-13 12:51 | PN ---
Progress Note (short form) - Note Progress Note: PROGRESS NOTE FOR HEMATOLOGY/ONCOLOGY Patient seen and examined by me at bedside Patient is comfortable and smiling. Reports pain is controlled and much better Denies any shortness of breath, fever, chills, nausea, vomiting, chest pain, palpitations. Vital Signs Temperature 98.5 F 01/13/18 08:00 Pulse Rate 84 01/13/18 08:00 Respiratory Rate 18 01/13/18 08:00 Blood Pressure 131/68 01/13/18 08:00 O2 Sat by Pulse Oximetry (%) 97 01/12/18 21:00 PHYSICAL EXAMINATION: GENERAL: Awake, alert, and fully oriented, in no acute distress. EYES: Pupils equal, round and reactive to light ENT: Oropharynx clear without exudates. Moist mucous membranes. LUNGS: Breath sounds equal, clear to auscultation bilaterally. No wheezes, and no crackles. No accessory muscle use. HEART: Regular rate and rhythm, normal S1 and S2 ABDOMEN: Soft, (+) tenderness upon palpation of RLQ, not distended, normoactive bowel sounds. EXTREMITIES:No peripheral edema. NEUROLOGICAL: Cranial nerves II-XII intact. Normal speech. Laboratory Tests 01/13/18 09:10 01/13/18 09:10 ASSESSMENT/PLAN: Patient is a 37 year old male who presented to the hospital for RLQ abdominal pain and CT A/P revealed multiple right renal hypodense nonenhancing lesion consistent with multiple acute infarcts. We were consulted for further evaluation and recommendation Problem List: RLQ abdominal Pain Multiple Acute Renal Infarcts-Unknown etiology HLD Obesity Plan: -TRICIA showed no cardiac source of emboli -CTA of chest, abdomen and pelvis showed normal aorta and no source of emboli -Patient may be in prothrombotic state with no famly history of strokes or VTE. -Factor V, antiphospholipid panel, Prothrombin gene all pending -Continue to bridge to warfarin with Heparin. May use Lovenox -Monitor INR and PTT -Spoke to patient in detail about following up as outpatient for pending results. Discussed duration of anticoagulation is still unknown as the etiology of the infarcts is still unknown. Explained that he will also need monitoring of his INR as outpatient to assure he is in therapeutic range. Also discussed the risks of bleeding and the risks if he discontinues the medication.
[2018-01-13] MEDS: HEPARIN INFUSION - 25,000 UNITS/500 ML INFUS.BAG IVPB SCH (16:13)
[2018-01-13] MEDS ORDERED: WARFARIN NA 5 MG TABLET (UD) PO ONE (18:00)
[2018-01-13] MEDS: ATORVASTATIN CA 80 MG TABLET (FP) PO SCH (21:02)
[2018-01-14] MEDS: DOCUSATE SODIUM 100 MG CAPSULE (FP) PO SCH ×3 (05:20→21:25)
[2018-01-14] MEDS: ACETAMINOPHEN 325 MG TABLET (FP) PO PRN ×2 (05:20→18:01)
[2018-01-14] MEDS: HEPARIN INFUSION - 25,000 UNITS/500 ML INFUS.BAG IVPB SCH ×2 (08:00→09:38)
[2018-01-14 08:26] LABS: HEMATOCRIT 40.2 % (35.4-49); HEMOGLOBIN 13.1 GM/dL (11.7-16.9); MCH 27.2 pg (25.7-33.7); MCHC 32.7 g/dl (32.0-35.9); MEAN CELL VOLUME 83.3 fl (80-96); MEAN PLT VOLUME 7.6 fl (7.5-11.1); PLATELET COUNT 215 K/MM3 (134-434); RBC 4.83 M/mm3 (4.00-5.60)
[2018-01-14 08:47] LABS: ALK PHOS 124 U/L (45-117); ANION GAP 12 MMOL/L (8-16); BILIRUBIN,TOTAL 0.6 mg/dL (0.2-1); BLOOD UREA NITROGEN 15 mg/dL (7-18); CHLORIDE 102 mmol/L (98-107); CO2 22 mmol/L (21-32); GLUCOSE,RANDOM 90 mg/dL (74-106); SGOT/AST 48 U/L (15-37); SGPT/ALT 110 U/L (13-61); SODIUM 137 mmol/L (136-145)
[2018-01-14] MEDS: RANITIDINE HCL 150 MG TABLET (FP) PO SCH ×2 (09:02→21:25)
--- NOTE | 2018-01-14 09:54 | PN ---
Physical Exam: SUBJECTIVE: Patient seen and examined. He reports he is feeling well. He still has some right-sided flank pain after he eats. Requesting a sleeping pill. Will switch to Lovenox if INR is therapeutic. OBJECTIVE: Vital Signs Period Temp Pulse Resp BP Sys/Spear Pulse Ox Last 24 Hr 98.3 F-99.2 F 75-92 18-20 124-148/55-78 97 GENERAL: The patient is awake, alert, and fully oriented, in no acute distress. HEAD: Normal with no signs of trauma. EYES: PERRL, extraocular movements intact, sclera anicteric, conjunctiva clear. No ptosis. ENT: Ears normal, nares patent, oropharynx clear without exudates, moist mucous membranes. NECK: Trachea midline, full range of motion, supple. LUNGS: Breath sounds equal, clear to auscultation bilaterally, no wheezes, no crackles, no accessory muscle use. HEART: Regular rate and rhythm, S1, S2 without murmur, rub or gallop. ABDOMEN: Obese, soft, nontender, nondistended, normoactive bowel sounds, no guarding, no rebound, no hepatosplenomegaly, no masses. EXTREMITIES: 2+ pulses, warm, well-perfused, no edema. NEUROLOGICAL: Cranial nerves II through XII grossly intact. Normal speech, gait not observed. PSYCH: Normal mood, normal affect. SKIN: Warm, dry, normal turgor, no rashes or lesions noted Laboratory Results - last 24 hr 01/12/18 01/13/18 01/13/18 08:55 09:10 09:10 WBC 6.2 RBC 4.84 Hgb 13.0 Hct 40.8 MCV 84.2 MCH 26.8 MCHC 31.8 L RDW 15.0 Plt Count 193 MPV 7.7 Absolute Neuts (auto) 4.0 Neutrophils % 64.7 Lymphocytes % 25.1 Monocytes % 8.1 Eosinophils % 1.7 D Basophils % 0.4 Nucleated RBC % 0 PT with INR 15.90 H INR 1.34 H PTT (Actin FS) Sodium Potassium Chloride Carbon Dioxide Anion Gap BUN Creatinine Creat Clearance w eGFR Random Glucose Calcium Total Bilirubin AST ALT Alkaline Phosphatase Total Protein Albumin Vnqz-6-Ehtnnbjwwzzd <9 Flri-2-Hyzufrfjccnt Ab <9 Beta-2-GPI IgM Ab <9 Anti-Cardiolipin IgG Ab <9 Anti-Cardiolipin IgA Ab <9 Anti-Cardiolipin IgM Ab 12 01/13/18 01/14/18 01/14/18 09:10 06:15 06:15 WBC 6.0 RBC 4.83 Hgb 13.1 Hct 40.2 MCV 83.3 MCH 27.2 MCHC 32.7 RDW 15.0 Plt Count 215 MPV 7.6 Absolute Neuts (auto) Neutrophils % Lymphocytes % Monocytes % Eosinophils % Basophils % Nucleated RBC % PT with INR INR PTT (Actin FS) 56.9 H Sodium 138 Potassium 3.9 Chloride 104 Carbon Dioxide 25 Anion Gap 9 BUN 8 Creatinine 1.1 Creat Clearance w eGFR > 60 Random Glucose 136 H Calcium 8.4 L Total Bilirubin AST ALT Alkaline Phosphatase Total Protein Albumin Bkay-8-Chhadrcumjql Oycg-7-Gahpgitwdzws Ab Beta-2-GPI IgM Ab Anti-Cardiolipin IgG Ab Anti-Cardiolipin IgA Ab Anti-Cardiolipin IgM Ab 01/14/18 06:15 WBC RBC Hgb Hct MCV MCH MCHC RDW Plt Count MPV Absolute Neuts (auto) Neutrophils % Lymphocytes % Monocytes % Eosinophils % Basophils % Nucleated RBC % PT with INR INR PTT (Actin FS) Sodium 137 Potassium 4.0 Chloride 102 Carbon Dioxide 22 Anion Gap 12 BUN 15 Creatinine 1.0 Creat Clearance w eGFR > 60 Random Glucose 90 Calcium 7.0 L Total Bilirubin 0.6 AST 48 H ALT 110 H Alkaline Phosphatase 124 H Total Protein 7.0 Albumin 3.0 L Kdgl-4-Wbnajocutpob Jooe-2-Qfqjjdenokhp Ab Beta-2-GPI IgM Ab Anti-Cardiolipin IgG Ab Anti-Cardiolipin IgA Ab Anti-Cardiolipin IgM Ab Active Medications Generic Name Dose Route Start Last Admin Trade Name Freq PRN Reason Stop Dose Admin Acetaminophen 650 mg 01/09/18 18:27 01/14/18 05:20 Tylenol - PO 650 mg Q6H PRN Administration PAIN LEVEL 7-10 Atorvastatin Calcium 40 mg 01/10/18 22:00 01/13/18 21:02 Lipitor - PO 40 mg HS KATHERIN Administration Docusate Sodium 100 mg 01/09/18 22:00 01/14/18 05:20 Colace - PO 100 mg TID KATHERIN Administration Heparin Sodium (Porcine) 1,000 unit 01/09/18 15:45 01/11/18 19:30 Heparin - IVPUSH 1,000 unit PRN PRN Administration Heparin Heparin Sodium (Porcine) 5,000 unit 01/09/18 15:45 01/12/18 03:30 Heparin - IVPUSH 5,000 unit PRN PRN Administration Heparin Sodium Chloride 1,000 mls @ 100 mls/hr 01/09/18 21:45 01/13/18 04:04 Normal Saline - IV 100 mls/hr ASDIR KATHERIN Administration Heparin Sodium/Dextrose 25,000 units in 500 mls @ 20 mls/hr 01/10/18 17:10 08:00 Heparin Infusion - IVPB 1,600 unit/hr TITR KATHERIN 32 mls/hr Administration Protocol 1,000 UNIT/HR Melatonin 5 mg 01/14/18 22:00 Melatonin PO HS KATHERIN Ondansetron HCl 4 mg 01/09/18 18:53 Zofran Injection IVPUSH Q6H PRN NAUSEA Ranitidine HCl 150 mg 01/09/18 22:00 01/14/18 09:02 Zantac - PO 150 mg BID KATHERIN Administration ASSESSMENT/PLAN: 37 year old male with a PMH significant for obesity and hyperlipidemia presented to the ED with RLQ pain. CT A/P revealed multiple right renal hypo- dense non-enhancing lesion consistent with multiple acute infarcts. Renal Infarction vs. Pyelonephritis - More likely infarction rather than infection - Urine and blood cultures negative - Antibiotix d/jaymie yesterday per ID - Monitor WBC and for fevers. - Hypercoagulable workup with heme pending - INR 1.24 appreciate heme consult re: continuing coumadin - coumadin 7.5 6 pm - stop hep drip at 1:00 pm - 2 hrs till start ->3pm - new weight -> dose bid 140 mg (1 mg/kg when clot) send home with 5 day supply - pharm teaching kit - eliquis -> coupons - Per surgery, there is no need for further vascular testing. 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 FULL CODE Visit type - Emergency Visit Emergency Visit: No - New Patient This patient is new to me today: Yes Date on this admission: 01/14/18 - Critical Care Critical Care patient: No
[2018-01-14 10:02] LABS: INR 1.24 (0.83-1.09); PROTHROMBIN TIME (PATIENT) 14.7 SEC (9.7-13.0)
[2018-01-14 10:10] LABS: DRVVT - 47.7 sec (0.0-47.0); HEXAGONAL PHASE PHOSPHOLIPID 9 sec (0-11); dRVVT MIX 43.5 sec (0.0-47.0)
--- NOTE | 2018-01-14 11:09 | PN ---
Progress Note (short form) - Note Progress Note: Renal follow up for Renal infarction pt seen and examined at the bedside continues to have mild flank pain, most noticaly when he eats Vital Signs Temperature 99.5 F 01/12/18 06:00 Pulse Rate 83 01/12/18 06:00 Respiratory Rate 18 01/12/18 06:00 Blood Pressure 128/70 01/12/18 06:00 O2 Sat by Pulse Oximetry (%) 97 01/11/18 21:00 Intake & Output 01/09/18 01/10/18 01/11/18 01/12/18 23:59 23:59 23:59 23:59 Intake Total 530 1340 3426 850 Output Total 1500 500 Balance 530 -160 2926 850 Weight 142.882 kg NAD awake and alert neck supple, no JVD no Le edema CBC, BMP 01/14/18 06:15 01/14/18 06:15 Current Medications Acetaminophen (Tylenol -) 650 mg PO Q6H PRN PRN Reason: PAIN LEVEL 7-10 Last Admin: 01/14/18 05:20 Dose: 650 mg Atorvastatin Calcium (Lipitor -) 40 mg PO HS [facility] Last Admin: 01/13/18 21:02 Dose: 40 mg Docusate Sodium (Colace -) 100 mg PO TID [facility] Last Admin: 01/14/18 05:20 Dose: 100 mg Heparin Sodium (Porcine) (Heparin -) 1,000 unit IVPUSH PRN PRN PRN Reason: Heparin Last Admin: 01/11/18 19:30 Dose: 1,000 unit Heparin Sodium (Porcine) (Heparin -) 5,000 unit IVPUSH PRN PRN PRN Reason: Heparin Last Admin: 01/12/18 03:30 Dose: 5,000 unit Heparin Sodium/Dextrose (Heparin Infusion -) 25,000 units in 500 mls @ 20 mls/ hr IVPB TITR KATHERIN; Protocol Last Admin: 01/14/18 09:38 Dose: 1,600 unit/hr, 32 mls/hr Melatonin (Melatonin) 5 mg PO HS [facility] Ondansetron HCl (Zofran Injection) 4 mg IVPUSH Q6H PRN PRN Reason: NAUSEA Ranitidine HCl (Zantac -) 150 mg PO BID [facility] Last Admin: 01/14/18 09:02 Dose: 150 mg 37 year old AA gentleman with no significant past medical history who presented with right sided abd pain and found to have renal infarction vs pylonephritis on CT scan. #Renal infarction vs. pylonephritis (less likely pylonephritis given no WBC/LE on UA) #Hyperlipidemia #Pre-HTN/HTN Renal function stable at this time continue A/C as per Heme/primary team continue thrombophilia work up as per Heme will need A/c for 3-6 months should have routine monitoring of renal function as outpatient Thank you Carl Mercado DO
--- NOTE | 2018-01-14 12:38 | PN ---
Progress Note, Physician History of Present Illness: patient stable no pain - Current Medication List Current Medications: Active Medications Acetaminophen (Tylenol -) 650 mg PO Q6H PRN PRN Reason: PAIN LEVEL 7-10 Last Admin: 01/14/18 05:20 Dose: 650 mg Atorvastatin Calcium (Lipitor -) 40 mg PO HS [facility] Last Admin: 01/13/18 21:02 Dose: 40 mg Docusate Sodium (Colace -) 100 mg PO TID [facility] Last Admin: 01/14/18 05:20 Dose: 100 mg Heparin Sodium (Porcine) (Heparin -) 1,000 unit IVPUSH PRN PRN PRN Reason: Heparin Last Admin: 01/11/18 19:30 Dose: 1,000 unit Heparin Sodium (Porcine) (Heparin -) 5,000 unit IVPUSH PRN PRN PRN Reason: Heparin Last Admin: 01/12/18 03:30 Dose: 5,000 unit Heparin Sodium/Dextrose (Heparin Infusion -) 25,000 units in 500 mls @ 20 mls/ hr IVPB TITR [facility]; Protocol Last Admin: 01/14/18 09:38 Dose: 1,600 unit/hr, 32 mls/hr Melatonin (Melatonin) 5 mg PO [facility] Ondansetron HCl (Zofran Injection) 4 mg IVPUSH Q6H PRN PRN Reason: NAUSEA Ranitidine HCl (Zantac -) 150 mg PO BID [facility] Last Admin: 01/14/18 09:02 Dose: 150 mg Warfarin Sodium (Coumadin -) 7.5 mg PO ONCE@1800 ONE Stop: 01/14/18 18:01 - Objective Vital Signs: Vital Signs Temperature 99.2 F 01/14/18 06:50 Pulse Rate 76 01/14/18 06:50 Respiratory Rate 18 01/14/18 06:50 Blood Pressure 128/55 L 01/14/18 06:50 O2 Sat by Pulse Oximetry (%) 98 01/14/18 09:00 Constitutional: Yes: No Distress, Calm Cardiovascular: Yes: Regular Rate and Rhythm Respiratory: Yes: Regular, CTA Bilaterally Gastrointestinal: Yes: Normal Bowel Sounds, Soft Musculoskeletal: Yes: WNL Extremities: Yes: WNL Neurological: Yes: Alert, Oriented Psychiatric: Yes: Alert, Oriented Labs: CBC, BMP 01/14/18 06:15 01/14/18 06:15 INR, PTT INR 1.24 (0.83-1.09) H 01/14/18 06:15 Assessment/Plan renal infarct obesity flank pain plan stable off of abx close watch rest as per the team and heam
[2018-01-14 15:29] LABS: HGB SOLUBILITY Negative (Negative); Hgb A 97.9 % (96.4-98.8); Hgb C 0 % (0.0); Hgb F 0 % (0.0-2.0); Hgb S 0 % (0.0)
[2018-01-14] MEDS ORDERED: PT OWN MED DRAWER 7, Y5N ONE ×2 (17:27→17:56)
[2018-01-14] MEDS ORDERED: WARFARIN NA 7.5 MG TABLET (FP) PO ONE (18:00)
[2018-01-14] MEDS ORDERED: MORPHINE SULFATE 2 MG/ML VIAL IVPUSH PRN (18:30)
[2018-01-14] MEDS: ATORVASTATIN CA 80 MG TABLET (FP) PO SCH (21:25)
[2018-01-14] MEDS ORDERED: MELATONIN 5 MG TABLETS PO SCH (22:00)
[2018-01-15] MEDS: HEPARIN INFUSION - 25,000 UNITS/500 ML INFUS.BAG IVPB SCH (00:07)
[2018-01-15] MEDS: DOCUSATE SODIUM 100 MG CAPSULE (FP) PO SCH ×2 (06:17→15:14)
[2018-01-15 06:57] LABS: HEMATOCRIT 41.7 % (35.4-49); HEMOGLOBIN 13.4 GM/dL (11.7-16.9); MCHC 32.2 g/dl (32.0-35.9); MEAN CELL VOLUME 83.7 fl (80-96); MEAN PLT VOLUME 7.6 fl (7.5-11.1); PLATELET COUNT 224 K/MM3 (134-434); RBC 4.98 M/mm3 (4.00-5.60)
[2018-01-15 07:13] LABS: INR 1.36 (0.83-1.09); PROTHROMBIN TIME (PATIENT) 16.1 SEC (9.7-13.0)
[2018-01-15 07:15] LABS: ACTIVATED PTT 73.9 SECONDS (25.2-36.5)
[2018-01-15 07:41] LABS: ALK PHOS 125 U/L (45-117); ANION GAP 10 MMOL/L (8-16); BILIRUBIN,TOTAL 0.6 mg/dL (0.2-1); BLOOD UREA NITROGEN 10 mg/dL (7-18); CALCIUM 8.6 mg/dL (8.5-10.1); CHLORIDE 102 mmol/L (98-107); CO2 27 mmol/L (21-32); CREATININE 1.1 mg/dL (0.55-1.3); GLUCOSE,RANDOM 85 mg/dL (74-106); MAGNESIUM 2.1 mg/dL (1.8-2.4); SGOT/AST 43 U/L (15-37); SGPT/ALT 109 U/L (13-61); SODIUM 138 mmol/L (136-145); TOT PROT 7.1 g/dl (6.4-8.2)
--- NOTE | 2018-01-15 08:10 | PN ---
Teaching Attending Note Name of Resident: Laisha Alonso ATTENDING PHYSICIAN STATEMENT I saw and evaluated the patient. I reviewed the resident's note and discussed the case with the resident. I agree with the resident's findings and plan as documented. ASSESSMENT AND PLAN: 37 y/o patient with obesity, HTN, presenting with rt. flank pain --imaging by CT shows rt. renal hypoperfusion--? infrct versus? focal pyelonephritis Clinical scenario, U/S not suggestive of pyelo Concen for renal infarct? thrombophilia w/u ongoing Check hemoglobin electrophoresis/JOSELUIS Bridging heparin to coumadin will need outpatient hematology f/u
[2018-01-15] MEDS: RANITIDINE HCL 150 MG TABLET (FP) PO SCH (09:37)
--- NOTE | 2018-01-15 11:21 | DS ---
Physical Exam: SUBJECTIVE: Patient seen and examined. Denies pain, he reports he is ready to go home. Nursing instructed how to administer lovenox injections. OBJECTIVE: Vital Signs Period Temp Pulse Resp BP Sys/Spear Pulse Ox Last 24 Hr 98.3 F-99.5 F 75-89 18-20 108-138/67-81 98 PHYSICAL EXAM GENERAL: The patient is awake, alert, and fully oriented, in no acute distress. HEAD: Normal with no signs of trauma. EYES: PERRL, extraocular movements intact, sclera anicteric, conjunctiva clear. ENT: Ears normal, nares patent, oropharynx clear without exudates, moist mucous membranes. NECK: Trachea midline, full range of motion, supple. LUNGS: Breath sounds equal, clear to auscultation bilaterally, no wheezes, no crackles, no accessory muscle use. HEART: Regular rate and rhythm, S1, S2 without murmur, rub or gallop. ABDOMEN: Obese, soft, nontender, nondistended, normoactive bowel sounds, no guarding, no rebound, no hepatosplenomegaly, no masses. EXTREMITIES: 2+ pulses, warm, well-perfused, no edema. NEUROLOGICAL: No facial droop, tongue midline, normal speech, gait not observed. PSYCH: Normal mood, normal affect. SKIN: Warm, dry, normal turgor, no rashes or lesions noted. LABS Laboratory Results - last 24 hr 01/12/18 01/15/18 01/15/18 08:55 06:30 06:30 WBC 6.0 RBC 4.98 Hgb 13.4 Hct 41.7 MCV 83.7 MCH 27.0 MCHC 32.2 RDW 15.0 Plt Count 224 MPV 7.6 Hemoglobin A 97.9 Hemoglobin A2 2.1 Hemoglobin C 0 Hemoglobin S 0 Variant Hemoglobin 0.0 Hemoglobin Interpret Maternal Rh 0 Hemoglobin Solubility Negative PT with INR INR PTT (Actin FS) Sodium 138 Potassium 4.0 Chloride 102 Carbon Dioxide 27 Anion Gap 10 BUN 10 Creatinine 1.1 Creat Clearance w eGFR > 60 Random Glucose 85 Calcium 8.6 Magnesium 2.1 Total Bilirubin 0.6 AST 43 H ALT 109 H Alkaline Phosphatase 125 H Total Protein 7.1 Albumin 3.0 L 01/15/18 06:30 WBC RBC Hgb Hct MCV MCH MCHC RDW Plt Count MPV Hemoglobin A Hemoglobin A2 Hemoglobin C Hemoglobin S Variant Hemoglobin Hemoglobin Interpret Maternal Rh Hemoglobin Solubility PT with INR 16.10 H INR 1.36 H PTT (Actin FS) 73.9 H Sodium Potassium Chloride Carbon Dioxide Anion Gap BUN Creatinine Creat Clearance w eGFR Random Glucose Calcium Magnesium Total Bilirubin AST ALT Alkaline Phosphatase Total Protein Albumin HOSPITAL COURSE: Date of Admission:01/09/18 Date of Discharge: 01/15/18 37 year old male with a PMH significant for obesity and hyperlipidemia presented to the ED with RLQ pain. CT A/P revealed multiple right renal hypo- dense non-enhancing lesion consistent with multiple acute infarcts. He was treated with IV ceftriaxone to cover for possible pyelonephritis, blood and urine cultures negative. He was seen by hematology and placed on a heparin drip. INR slowly becoming therapeutic, today 1.36. He is going to go home on Lovenox and coumadin. He will require anticoagulation for 3-6 months. He will f/ u with PCP within 2 days to continue coumadin bridge, and f/u with heme onc. Monitor renal function with PCP. Patent Foramen Ovale - Small patent PFO seen on TRICIA - Follow up OP with cardiology to discuss potential repair Transaminitis - AST 48, ALT 110, Alk phos 124 - Hold Atorvastatin 40 mg QHS - Monitor CMP Hyperlipidemia - Elevated LFTs - Hold Statin Minutes to complete discharge: 40 Discharge Summary Reason For Visit: ISCHEMIA AND INFARCTION OF KIDNEY Current Active Problems Ischemia and infarction of kidney (Acute) Condition: Stable - Instructions Diet, Activity, Other Instructions: Mr. Gil, Reji were admitted to [facility] from 01/09 - 01/15 with right- sided abdominal pain. Your CT scan of your abdomen showed multiple lesions on your right kidney consistent with acute infarcts. Because of this, you were placed on anticoagulant IV heparin and Coumadin. You are being sent home on Lovenox and Coumadin 10 mg. You were treated prophylactically with IV antibiotics. You will require anticoagulation for 3-6 months. 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 It is VERY important that you follow up with Dr. Scherer within 2 days to adjust your Coumadin dose. This is very important because if it is too low, you could get another infarct, or if it is too high, you could have a serious bleed. START Lovenox injections 140 mg as instructed by the nurses Coumadin 10 mg daily at 6 PM STOP Atorvastatin 40 mg for now as your most recent liver enzymes were elevated. Dr. Scherer will monitor your blood to ensure your liver enzymes have normalized, then you may resume Lipitor. Please return to the ER if you have any signs or symptoms of chest pain, shortness of breath, uncontrollable fever, chills, nausea, vomiting, numbness, tingling, or weakness in any part of your body, changes in vision, or slurred speech. [facility] [phone] Referrals: Jacquelyn Scherer NP [Primary Care Provider] - 01/16/18 Disposition: HOME - Home Medications Comprehensive Discharge Medication List: Ambulatory Orders Naproxen [Naprosyn -] 250 mg PO BID PRN 01/09/18 Enoxaparin Sodium [Lovenox] 100 mg NR Q12H 5 Days #10 ml 01/15/18 Enoxaparin [Lovenox -] 40 mg SQ DAILY #10 disp.syrin 01/15/18 Warfarin Sodium [Coumadin] 10 mg PO DAILY 5 Days #5 tablet 01/15/18 This patient is new to me today: No Emergency Visit: No Critical Care patient: No - Discharge Referral Referred to [facility] Med [facility] No
--- NOTE | 2018-01-15 12:53 | PN ---
Progress Note, Physician Chief Complaint: The patient seen in his bed. Feels better, except for episodes of pain when he moves. Maintains good urine output. No chest pain. says that he might be going home today. - Current Medication List Current Medications: Active Medications Acetaminophen (Tylenol -) 650 mg PO Q6H PRN PRN Reason: PAIN LEVEL 7-10 Last Admin: 01/14/18 18:01 Dose: 650 mg Atorvastatin Calcium (Lipitor -) 40 mg PO HS [facility] Last Admin: 01/14/18 21:25 Dose: 40 mg Docusate Sodium (Colace -) 100 mg PO TID [facility] Last Admin: 01/15/18 06:17 Dose: 100 mg Enoxaparin Sodium (Lovenox -) 140 mg SQ ONCE ONE Stop: 01/15/18 13:31 Heparin Sodium (Porcine) (Heparin -) 1,000 unit IVPUSH PRN PRN PRN Reason: Heparin Last Admin: 01/11/18 19:30 Dose: 1,000 unit Heparin Sodium (Porcine) (Heparin -) 5,000 unit IVPUSH PRN PRN PRN Reason: Heparin Last Admin: 01/12/18 03:30 Dose: 5,000 unit Melatonin (Melatonin) 5 mg PO [facility] Last Admin: 01/14/18 21:25 Dose: 5 mg Morphine Sulfate (Morphine Sulfate) 2 mg IVPUSH Q6H PRN PRN Reason: PAIN LEVEL 6-10 Last Admin: 01/15/18 09:12 Dose: 2 mg Ondansetron HCl (Zofran Injection) 4 mg IVPUSH Q6H PRN PRN Reason: NAUSEA Ranitidine HCl (Zantac -) 150 mg PO BID [facility] Last Admin: 01/15/18 09:37 Dose: 150 mg - Objective Vital Signs: Vital Signs Temperature 99.5 F 01/15/18 10:00 Pulse Rate 89 01/15/18 10:00 Respiratory Rate 18 01/15/18 10:00 Blood Pressure 138/81 01/15/18 10:00 O2 Sat by Pulse Oximetry (%) 98 01/14/18 21:00 Constitutional: Yes: Well Nourished, Anxious Eyes: Yes: Conjunctiva Clear HENT: Yes: Normocephalic Neck: Yes: Trachea Midline Cardiovascular: Yes: Regular Rate and Rhythm, S1, S2 Respiratory: Yes: CTA Bilaterally Gastrointestinal: Yes: Normal Bowel Sounds, Soft Edema: No Labs: CBC, BMP 01/15/18 06:30 01/15/18 06:30 INR, PTT INR 1.36 (0.83-1.09) H 01/15/18 06:30 Assessment/Plan 37 year old AA gentleman with no significant past medical history who presented with right sided abd pain and found to have possible renal infarction #Renal infarction vs. pylonephritis. Heme-Onc on board. W/u in progress. #Hyperlipidemia #Pre-HTN/HTN Renal functions fairly stable. Thank you. Arabella Ibarra MD
[2018-01-15] MEDS ORDERED: ENOXAPARIN NA (PORCINE) 40 MG/0.4 ML DISP.SYRIN SQ ONE (13:30)
[2018-01-15 15:23] VITALS: BP 127/68; PULSE 91; TEMP 98.5
== END 2018-01-15 17:29 | disposition home or self-care (01) | DRG 699 ==
LOC: JER 13:35 → JERBED 15:50 → J8W 18:07
PROVIDERS: ADMIT Internal Medicine; ATTEND Nurse Practitioner Adult Health
PROC: B246ZZ4 Ultrasonography of Right and Left Heart, Transesophageal (ICD-10-PCS; principal; 2018-01-11 10:00)
DX: N28.0 Ischemia and infarction of kidney (principal); Z68.41 Body mass index [BMI] 40.0-44.9, adult; R74.0 Nonspecific elevation of levels of transaminase and lactic acid dehydrogenase [LDH]; E78.5 Hyperlipidemia, unspecified; I10 Essential (primary) hypertension; E83.51 Hypocalcemia; E66.9 Obesity, unspecified; R10.31 Right lower quadrant pain
CPT/HCPCS: 36415; 71046-TC-FY; 71275-TC; 74175-TC; 74177-TC; 80048; 80053; 80061; 81003; 81240; 81241; 82550; 82553; 83021; 83036; 83615; 83690; 83721; 83735; 84484; 85025; 85027; 85597; 85610; 85613; 85651; 85660; 85730; 85732; 86140; 86146; 86147; 86850; 86900; 86901; 87040; 87086; 93005; 93010; 93306-TC; 93312; 93325; 93970-TC; 99283-25; J0131; J1644; J7030

== ENCOUNTER 2020-03-22 05:27 | Emergency (ER) | payer OTHER ==
[2020-03-22 05:34] VITALS: BMI 27.1
[2020-03-22] MEDS ORDERED: LACTATED RINGERS SOLUTION 1,000 ML IV STA (05:35)
[2020-03-22] MEDS ORDERED: FAMOTIDINE 20 MG/50 ML IVPB 20 MG/50 ML MG IVPB ONE ×2 (05:35→06:17)
[2020-03-22] MEDS ORDERED: ACETAMINOPHEN 1000 MG/100 ML VIAL (NON FORMULARY) IVPB ONE (05:35)
[2020-03-22] MEDS ORDERED: morphine CARPU-JECT 4 MG/1 ML DISP.SYRIN IVPUSH ONE (05:35)
[2020-03-22] MEDS ORDERED: ONDANSETRON 4 MG/2 ML VIAL IVPUSH ONE (05:37)
[2020-03-22] MEDS ORDERED: KETOROLAC TROMETHAMINE 30 MG/1 ML VIAL IM ONE (05:52)
[2020-03-22] MEDS ORDERED: ACETAMINOPHEN INJECTION 100 ML IVPB ONE (05:52)
[2020-03-22] MEDS ORDERED: KETOROLAC TROMETHAMINE 30 MG/1 ML VIAL ONE (05:52)
[2020-03-22] MEDS ORDERED: morphine SULFATE 4 MG/ML VIAL ONE (06:03)
[2020-03-22] MEDS ORDERED: ONDANSETRON 4 MG/2 ML VIAL ONE (06:17)
[2020-03-22 06:34] LABS: BASO % 0.3 % (0-2.0); EOS % 2.4 % (0-4.5); HEMATOCRIT 44.1 % (35.4-49); HEMOGLOBIN 14.5 GM/dL (11.7-16.9); LYMPH % 49.4 % (8-40); MCH 27.4 pg (25.7-33.7); MCHC 32.8 g/dl (32.0-35.9); MEAN CELL VOLUME 83.5 fl (80-96); MEAN PLT VOLUME 8.3 fl (7.5-11.1); MONO % 13.3 % (3.8-10.2); NEUT % 34.6 % (42.8-82.8); PLATELET COUNT 230 K/MM3 (134-434); RBC 5.29 M/mm3 (4.00-5.60); RDW 14.9 % (11.9-15.9); WHITE BLOOD COUNT 4.4 K/mm3 (4.0-10.0)
[2020-03-22 06:53] LABS: EPI CELLS 7 /uL (0-25.1); HYALINE CASTS 4 /uL (0-3.1); PH,URINE 5.5 (5.0-8.0); URINE APPEARANCE CLOUDY; URINE BACTERIA 52 /uL (0-1359); URINE BILIRUBIN NEGATIVE (NEGATIVE); URINE COLOR YELLOW; URINE GLUCOSE (UA) NEGATIVE (NEGATIVE); URINE KETONE TRACE (NEGATIVE); URINE LEUK ESTERASE NEGATIVE (NEGATIVE); URINE NITRITE NEGATIVE (NEGATIVE); URINE PROTEIN 1+ (NEGATIVE); URINE RBC 627 /uL (0-23.9); URINE UROBILINOGEN 0.2 mg/dL (0.2-1.0); URINE WBC 13 /uL (0-25.8)
[2020-03-22 06:59] LABS: CHLORIDE 110 mmol/L (98-107); POTASSIUM 3.9 mmol/L (3.5-5.1); SODIUM 144 mmol/L (136-145)
[2020-03-22 07:02] LABS: ALBUMIN 3.6 g/dl (3.4-5.0); CALCIUM 8.5 mg/dL (8.5-10.1)
[2020-03-22 07:03] LABS: ANION GAP 9 MMOL/L (8-16); BLOOD UREA NITROGEN 11.8 mg/dL (7-18); CO2 25 mmol/L (21-32); GLUCOSE,RANDOM 126 mg/dL (74-106); LIPASE 203 U/L (73-393); MAGNESIUM 1.8 mg/dL (1.8-2.4)
[2020-03-22 07:04] LABS: INR 1.09 (0.83-1.09); PROTHROMBIN TIME (PATIENT) 13.1 SEC (9.7-13.0)
[2020-03-22 07:05] LABS: CREATININE 1.1 mg/dL (0.55-1.3); SGOT/AST 38 U/L (15-37); SGPT/ALT 78 U/L (13-61)
[2020-03-22 07:06] LABS: PHOSPHOROUS 3.3 mg/dL (2.5-4.9)
[2020-03-22 07:07] LABS: BILIRUBIN,TOTAL 0.7 mg/dL (0.2-1); TOT PROT 7.1 g/dl (6.4-8.2)
[2020-03-22 07:08] LABS: ALK PHOS 95 U/L (45-117)
[2020-03-22 08:22] VITALS: TEMP 98.1
[2020-03-22] MEDS ORDERED: KETOROLAC TROMETHAMINE 15 MG/ML VIAL IVPUSH ONE (09:27)
[2020-03-22] MEDS ORDERED: TAMSULOSIN HCL 0.4 MG CAP PO ONE (09:54)
[2020-03-22] MEDS ORDERED: TAMSULOSIN HCL 0.4 MG CAP ONE (09:59)
[2020-03-22] MEDS ORDERED: SODIUM CHLORIDE 0.9% 500 ML INFUS.BAG IV ONE (09:59)
[2020-03-22 11:37] VITALS: BP 108/60; PULSE 74
== END 2020-03-22 12:45 | disposition home or self-care (01) ==
LOC: JER 05:27
PROC: 3E023GC Introduction of Other Therapeutic Substance into Muscle, Percutaneous Approach (ICD-10-PCS; principal; 2020-03-22)
PROC: 3E033GC Introduction of Other Therapeutic Substance into Peripheral Vein, Percutaneous Approach (ICD-10-PCS; principal; 2020-03-22)
DX: N20.2 Calculus of kidney with calculus of ureter (principal)
CPT/HCPCS: 36415; 74174-TC; 80053; 81003; 82550; 83605; 83690; 83735; 84100; 84484; 85025; 85610; 85730; 86850; 86900; 86901; 87086; 93005; 93010; 99285-25; J0131